=== PATIENT | female | born 1950 | race Caucasian/White ===

== ENCOUNTER 2019-05-05 17:40 | Inpatient (IN) ==
[2019-05-05] MEDS ORDERED: ONDANSETRON INJ 2 MG/ML 2 ML VIAL IV STA (18:09)
[2019-05-05] MEDS ORDERED: KETOROLAC TROMETHAMINE 15 MG/ML VIAL IV ONE (18:09)
[2019-05-05] MEDS: HYDROmorphone INJ 0.5 MG/0.5 ML SYR IV PRN ×2 (18:27→22:07)
[2019-05-05 18:53] LABS: Basophils # (auto) 0.02 K/uL (0-0.2); Basophils % (auto) 0.1 %; Hematocrit (blood only) 45.6 % (37-47); Hemoglobin 16.2 g/dL (12.0-16.0); Immature Granulocytes # (auto) 0.05 K/uL (0.00-0.02); Immature Granulocytes % (auto) 0.2 %; Lymphocytes # (auto) 0.37 K/uL (1.2-3.4); Lymphocytes % (auto) 1.8 %; Mean Corpuscular Hgb Conc 35.5 g/dL (32-36); Mean Corpuscular Volume 89.9 fL (80-100); Mean Platelet Volume 9.9 fL (7.4-10.4); Monocytes # (auto) 1.32 K/uL (0.11-0.59); Monocytes % (auto) 6.5 %; Neutrophils # (auto) 18.62 K/uL (1.4-6.5); Neutrophils % (auto) 91.4 %; Platelet Count 265 K/uL (130-400); RDW Coefficient of Variation 12.7 % (11.5-14.5); RDW Standard Deviation 41.1 fL (36.4-46.3); Red Blood Count 5.07 M/uL (4.2-5.4); White Blood Count 20.38 K/uL (4.8-10.8)
--- NOTE | 2019-05-05 19:25 | CT Scan Report ---
ABDOMEN AND PELVIS CT WITHOUT CONTRAST CT DOSE: 1175.94 mGy.cm HISTORY: Acute left flank pain left flank pain TECHNIQUE: Multiaxial CT images of the abdomen and pelvis were performed without contrast. A dose lo wering technique was utilized adhering to the principles of ALARA. COMPARISON STUDY: None. FINDINGS: Mild subsegmental bibasilar atelectasis. There is no pneumatosis or pneumoperitoneum. Imaged inferior cardiac chambers are unremarkable. Hepatic steatosis. No evidence of cirrhosis. The spleen and adren al glands are unremarkable. Moderate generalized pancreatic atrophy. Large gallstone of the mid gallb ladder is noted without CT evidence of acute cholecystitis or biliary ductal dilation. Mucosal fold o f the gallbladder fundus with gallbladder distention. 2 mm nonobstructing calculus of the interpolar right kidney. There are several punctate nonobstructin g calculi of the left kidney, most pronounced within the inferior pole. 1.9 x 1.1 x 1.7 cm calculus o f the left ureteropelvic junction results in moderate hydroureteronephrosis with associated reactive perinephric and proximal periureteral edema. Unremarkable urinary bladder. Hysterectomy. Multiple phl eboliths of the pelvis. No adnexal mass lesions. Calcified plaque of the abdominal aorta. Unremarkabl e IVC. No adenopathy. Mild nonspecific wall thickening of the distal esophagus. No bowel obstruction or bowel wall thickeni ng. Appendix not definitively seen. No secondary signs of acute appendicitis. Soft tissues are unrema rkable. Degenerative changes of the spine and pelvis. IMPRESSION: 1. Moderate left-sided obstructive uropathy secondary to an obstructing calculus of the left ureterop elvic junction, 1.9 cm. 2. Nonobstructing bilateral nephrolithiasis. 3. No bowel obstruction or bowel wall thickening. 4. Mild gallbladder distention with large gallstone. No definite CT evidence of acute cholecystitis. 5. Hepatic steatosis. Electronically signed by: Samuel Cleveland M.D. 05/05/2019 7:23 PM
[2019-05-05 19:29] LABS: Alanine Aminotransferase 19 U/L (12-78); Albumin Globulin Ratio 0.9 (0.9-2); Albumin Level 3.9 gm/dl (3.4-5.0); Alkaline Phosphatase 111 U/L (45-117); Aspartate Aminotransferase 15 U/L (15-37); BUN Creatinine Ratio 13.8 (10-20); Bilirubin,Total 1.2 mg/dl (0.2-1); Blood Urea Nitrogen 19 mg/dl (7-18); Calcium 9.7 mg/dl (8.5-10.1); Carbon Dioxide 17 mmol/L (21-32); Chloride 95 mmol/L (98-107); Creatinine Clr Calc Pharmacy 46.5 ml/min; Est GFR (African American) 45.8; Est GFR (Non-African American) 39.5; Globulin 4.4 gm/dl (2.5-4.0); Glucose 493 mg/dl (70-99); Lipase 112 U/L (73-393); Potassium 4.1 mmol/L (3.5-5.1); Sodium 130 mmol/L (136-145); Total Protein 8.4 gm/dl (6.4-8.2)
[2019-05-05] MEDS ORDERED: SODIUM CHLORIDE 0.9% 1000ML 1,000 ML IV ONE ×2 (19:40→23:15)
[2019-05-05] MEDS ORDERED: SODIUM CHLORIDE 0.9% 1000ML 1,000 ML IV STA (19:40)
[2019-05-05 19:41] LABS: Appearance Urine Clear (Clear); Bacteria Urine Automated Negative (Negative); Bilirubin Urine Negative (Negative); Blood Urine 1+ (Negative); Cast Urine Automated 0 /lpf (0-5); Color Urine Yellow; Glucose Urine UA 3+ (Negative); Leukocyte Esterase Urine Negative (Negative); Nitrite Urine Negative (Negative); Protein Urine Trace (Negative); RBC Urine Automated 0-4 /hpf (0-4); Specific Gravity Urine 1.034 (1.000-1.030); Urobilinogen Urine Negative (Negative)
[2019-05-05 19:42] LABS: Beta-Hydroxybutyrate 27.97 mg/dl (0.2-2.81)
[2019-05-05 19:47] LABS: Ketones Urine 3+ (Negative)
[2019-05-05] MEDS ORDERED: MODERATE STRESS LEVEL ONE (19:47)
[2019-05-05] MEDS ORDERED: INSULIN REGULAR 250 UNITS in SODIUM CHLORIDE 0.9% 247.5 ML IV SCH ×3 (20:00→22:27)
[2019-05-05] MEDS ORDERED: DKA GOAL RANGE 150-250 mg/dl ONE (20:06)
[2019-05-05] MEDS ORDERED: GLUCOSE 40% GEL 15 GM TUBE PO PRN (20:15)
[2019-05-05] MEDS ORDERED: GLUCOSE 10 TABS/TUBE PO PRN (20:15)
[2019-05-05] MEDS ORDERED: GLUCAGON FOR INJ 1 MG VIAL IM PRN (20:15)
[2019-05-05] MEDS ORDERED: NovoLIN-R BOLUS FROM BAG IV ONE (20:15)
[2019-05-05] MEDS ORDERED: DEXTROSE 50% 50 ML SYRINGE IV PRN (20:15)
[2019-05-05] MEDS ORDERED: CARBOHYDRATES FOR HYPOGLYCEMIA PO PRN (20:15)
[2019-05-05] MEDS ORDERED: cloNIDine HCL 0.1 MG TAB PO ONE (20:35)
[2019-05-05] MEDS ORDERED: HYDROmorphone INJ 0.5 MG/0.5 ML SYR IV PRN (20:44)
[2019-05-05] MEDS ORDERED: PROMETHAZINE HCL 12.5 MG in SODIUM CHLORIDE 0.9% 50 ML IV PRN (20:44)
[2019-05-05] MEDS ORDERED: OXYCODONE HCL IR 5 MG TAB (IMMEDIATE RELEASE) PO PRN (20:44)
[2019-05-05] MEDS ORDERED: SODIUM CHLORIDE 0.9% 1000ML 1,000 ML IV SCH (20:45)
[2019-05-05] MEDS ORDERED: INSULIN ASPART 100 UNITS/ML 3 ML PEN SC SCH (21:00)
--- NOTE | 2019-05-05 21:04 | XRay Report ---
XR chest 1V portable HISTORY: 68 years-old Female sepsis acute sepsis COMPARISON: CT abdomen and pelvis of same day TECHNIQUE: Portable AP view of the chest FINDINGS: Cardiac silhouette is enlarged. Minimal bibasilar atelectasis. No pneumothorax, pleural effusion, foc al airspace consolidation or overt pulmonary edema. Degenerative changes of the shoulders and spine. IMPRESSION: Cardiomegaly without acute process. The above report was generated using voice recognition software. It may contain grammatical, syntax o r spelling errors. Electronically signed by: Samuel Cleveland M.D. 05/05/2019 9:03 PM
[2019-05-05 21:10] LABS: Magnesium 1.6 mg/dl (1.8-2.4); Troponin I < 0.015 ng/ml (0-0.045)
--- NOTE | 2019-05-05 21:16 | History & Physical Report ---
Date of Service May 05, 2019 Assessment & Plan (1) DKA (diabetic ketoacidoses): Hx DM 2 (patient denies knowledge of diagnosis) Outpatient hemoglobin A1c 7.5 as of September 2012 hx medication noncompliance Severe sepsis (SIRS plus lactic acid elevation plus ARF) secondary to complicated UTI secondary to obstructive uropathy as additional precipitant to hyperglycemic crisis, procalcitonin noted to be elevated Hypertensive urgency secondary to illness, discomfort hx medication noncompliance hyperlipidemia as per records, patient previously on statin rx uterine cancer status post surgery PCU IVF, IV insulin Update hemoglobin A1c DM education Cultures, IV Zosyn for now Urology consult RE obstructive uropathy, left (ER provider already in touch with Dr. Veolz) Initiate Coreg for BP control, resume prior GABBY inhibitor once creatinine normal Resume prior statin Rx DVT prophylaxis. Lovenox subcu Full code Patient's daughter requesting updates from providers. Ms. Margarita Valdovinos, contact #[phone]. History of Present Illness Chief Complaint: Left flank pain Primary Care Provider: NO PCP History obtained from patient, family, and records. Medical history significant for hypertension, hx DM2 as per records (patient denies knowledge of diagnosis), hyperlipidemia as per records, uterine cancer status post surgery, osteoarthritis. Patient to [place] from [place] about 5 years ago to be close to her daughter. Never set up PCP services in [facility]. Doing [place], [place] residence, patient's [facility] PCP had patient on metformin Rx for DM; Atenolol and Lisinopril Rx for HTN as per records. Patient stopped taking above medications because " there was no one to prescribe them in [facility] for me." This morning patient woke up with achy left-sided flank pain going to the front with nausea and emesis. No chest pain. S OB from not being able to take a deep breath because of left flank pain. No cough symptoms. No dysuria, no hematuria, no fever. Some chills noted at home. At the ER, IV insulin started for DKA. Medical History as above Surgical History : Hysterectomy, dental surgery, D&C Family History : Lymphoma, thyroid cancer, diabetes, prostate cancer Personal/Social history : Non-smoker, no EtOH intake, retired [employer] employee Allergies Allergy/AdvReac Type Severity Reaction Status Date / Time acetaminophen [From Tylenol] Allergy Severe Hives, Verified 05/05/19 20:38 swollen eyes and fingers turn black aspirin Allergy Severe Hives, Verified 05/05/19 20:38 swollen eyes and fingers turn black Home Medications Home Medications Medication Instructions Recorded Confirmed Type No Known Home Medications 05/05/19 05/05/19 History Past Med/Surg History Medical History Hypertension (Chronic) Uterine cancer (Resolved) Surgical History No significant past surgical history Family History Other No pertinent family history Social History Preferred Language: Kiswahili Communication Ability: Effective Dianetic Counselor Required: No Beliefs That Will Affect Care: None Current Living Situation: Alone Other Information That Helps Us Care for You: No Feels Safe at Home: Yes Safety Concerns: Feels Safe At This Time Smoking Status: Never smoker Hx Alcohol Use: Yes Alcohol type: wine Hx Substance Use: No Review of Systems Review of Systems: As per HPI, all 10 systems reviewed, all other ROS negative Physical Exam Physical Exam: GENERAL: Comfortable, cheerful, obese, no respiratory distress SKIN: Normal color, warm HEENT: [place] palpebral conjunctivae, no ptosis, dry buccal mucosa NECK : Supple, short neck, no tenderness CHEST : CTA, no tenderness HEART : Tachycardic, no obvious murmurs ABDOMEN: Some distention, left flank tenderness EXTREMITIES : Chronic LE swelling, no LE tenderness, no other conspicuous deformities noted NEUROLOGIC : Coherent, no facial asymmetry, no other gross focality Results & Data Vital Signs (Past 12 Hours) Vital Signs Temp Pulse Pulse Resp BP BP Pulse Ox 05/05/19 19:56 105 H 19 188/110 H 97 05/05/19 18:37 103 H 16 184/107 H 96 05/05/19 17:59 36.8 C 112 H 20 199/104 H 98 Laboratory Results Laboratory Results WBC 20.38 K/uL (4.8-10.8) H 05/05/19 18:25 RBC 5.07 M/uL (4.2-5.4) 05/05/19 18:25 Hgb 16.2 g/dL (12.0-16.0) H 05/05/19 18:25 Hct 45.6 % (37-47) 05/05/19 18: MCV 89.9 fL (80-100) 05/05/19 18:25 MCH 32.0 pg (25-34) 05/05/19 18: MCHC 35.5 g/dL (32-36) 05/05/19 18: RDW Std Deviation 41.1 fL (36.4-46.3) 05/05/19 18: RDW Coeff of Marisa 12.7 % (11.5-14.5) 05/05/19 18: Plt Count 265 K/uL (130-400) 05/05/19 18: MPV 9.9 fL (7.4-10.4) 05/05/19 18:25 Immature Gran % (Auto) 0.2 % 05/05/19 18: Neut % (Auto) 91.4 % 05/05/19 18:25 Lymph % (Auto) 1.8 % 05/05/19 18:25 [place] % (Auto) 6.5 % 05/05/19 18:25 Eos % (Auto) 0.0 % 05/05/19 18: Baso % (Auto) 0.1 % 05/05/19 18: Immature Gran # (Auto) 0.05 K/uL (0.00-0.02) H 05/05/19 18:25 Neut # (Auto) 18.62 K/uL (1.4-6.5) H 05/05/19 18:25 Lymph # (Auto) 0.37 K/uL (1.2-3.4) L 05/05/19 18:25 [place] # (Auto) 1.32 K/uL (0.11-0.59) H 05/05/19 18:25 Eos # (Auto) 0.00 K/uL (0-0.5) 05/05/19 18:25 Baso # (Auto) 0.02 K/uL (0-0.2) 05/05/19 18:25 Sodium 130 mmol/L (136-145) L 05/05/19 18:25 Potassium 4.1 mmol/L (3.5-5.1) 05/05/19 18:25 Chloride 95 mmol/L (98-107) L 05/05/19 18:25 Carbon Dioxide 17 mmol/L (21-32) L 05/05/19 18:25 Anion Gap 18.0 (3-11) H 05/05/19 18:25 BUN 19 mg/dl (7-18) H 05/05/19 18:25 Creatinine 1.37 mg/dl (0.6-1.2) H 05/05/19 18:25 Est Cr Clr Drug Dosing 46.5 ml/min 05/05/19 18:25 Est GFR ( Amer) 45.8 05/05/19 18:25 Est GFR (Non-Af Amer) 39.5 05/05/19 18:25 BUN/Creatinine Ratio 13.8 (10-20) 05/05/19 18:25 Glucose 493 mg/dl (70-99) H* 05/05/19 18:25 POC Glucose 478 (70-99) H* 05/05/19 20:55 Calcium 9.7 mg/dl (8.5-10.1) 05/05/19 18:25 Magnesium 1.6 mg/dl (1.8-2.4) L 05/05/19 18:25 Total Bilirubin 1.2 mg/dl (0.2-1) H 05/05/19 18:25 AST 15 U/L (15-37) 05/05/19 18:25 ALT 19 U/L (12-78) 05/05/19 18:25 Alkaline Phosphatase 111 U/L (45-117) 05/05/19 18:25 Troponin I < 0.015 ng/ml (0-0.045) 05/05/19 18:25 Total Protein 8.4 gm/dl (6.4-8.2) H 05/05/19 18:25 Albumin 3.9 gm/dl (3.4-5.0) 05/05/19 18:25 Globulin 4.4 gm/dl (2.5-4.0) H 05/05/19 18:25 Albumin/Globulin Ratio 0.9 (0.9-2) 05/05/19 18:25 Lipase 112 U/L (73-393) 05/05/19 18:25 Beta-Hydroxybutyric Acd 27.97 mg/dl (0.2-2.81) H 05/05/19 18:25 TSH 1.710 uIu/ml (0.300-4.500) 05/05/19 18:25 Urine Color Yellow 05/05/19 19: Urine Appearance Clear (Clear) 05/05/19: Urine pH 5.0 (4.5-7.5) 05/05/19: Ur Specific [place] 1.034 (1.000-1.030) H 05/05/19 19: Urine Protein Trace (Negative) H 05/05/19 19:29 Urine Glucose (UA) 3+ (Negative) H 05/05/19: Urine Ketones 3+ (Negative) H 05/05/19: Urine Blood 1+ (Negative) H 05/05/19: Urine Nitrite Negative (Negative) 05/05/19: Urine Bilirubin Negative (Negative) 05/05/19: Urine Urobilinogen Negative (Negative) 05/05/19 19: Ur Leukocyte Esterase Negative (Negative) 05/05/19 19:29 Urine WBC (Auto) 10-30 /hpf (0-5) H 05/05/19 19: Urine RBC (Auto) 0-4 /hpf (0-4) 05/05/19: U Hyaline Cast (Auto) 0 /lpf (0-5) 05/05/19 19: U Epithel Cells (Auto) 10-20 /lpf (0-5) H 05/05/19 19:29 Urine Bacteria (Auto) Negative (Negative) 05/05/19 19:[address] abdomen pelvis: 1. Moderate left-sided obstructive uropathy secondary to an obstructing calculus of the left ureteropelvic junction, 1.9 cm. 2. Nonobstructing bilateral nephrolithiasis. 3. No bowel obstruction or bowel wall thickening. 4. Mild gallbladder distention with large gallstone. No definite CT evidence of acute cholecystitis. 5. Hepatic steatosis. Chest x-ray : Cardiomegaly EKG as per my interpretation : Rate 115, sinus tachycardia, LAD, LAFB, LAE, LVH, no ischemia (1) DKA (diabetic ketoacidoses) Diabetes mellitus complication detail: without coma Diabetes mellitus type: other specified (including KAVON) Qualified Code(s): E13.10 - Other specified diabetes mellitus with ketoacidosis without coma
[2019-05-05] MEDS ORDERED: carvediloL 3.125 MG TAB ONE (21:27)
[2019-05-05] MEDS ORDERED: INSULIN PROTOCOL GOAL RANGE ONE (22:27)
[2019-05-05] MEDS ORDERED: LORazepam 0.25 MG/0.5 ML VIAL IV PRN (22:27)
[2019-05-05] MEDS ORDERED: NITROGLYCERIN SL 0.4 MG/TAB TAB SL PRN (22:27)
[2019-05-05] MEDS ORDERED: D5W AND LACTATED RINGERS 1,000 ML IV PRN (22:27)
[2019-05-05] MEDS: carvediloL 3.125 MG TAB PO SCH (22:42)
[2019-05-05 23:59] LABS: BUN Creatinine Ratio 11.9 (10-20); Calcium 8.5 mg/dl (8.5-10.1); Creatinine Clr Calc Pharmacy 46.7 ml/min; Est GFR (African American) 45.4; Est GFR (Non-African American) 39.2; Potassium 3.9 mmol/L (3.5-5.1)
[2019-05-05] MEDS ORDERED: CEFEPIME 2,000 MG/20 ML VIAL IV STA (23:59)
[2019-05-05] MEDS ORDERED: CEFEPIME CONSULT ACTIVE ONE (23:59)
[2019-05-06] MEDS ORDERED: LACTATED RINGER'S 1,000 ML IV ONE (00:11)
[2019-05-06] MEDS ORDERED: PIPERACILL/TAZOBAC CONSULT ACTIVE PRN (00:11)
[2019-05-06] MEDS ORDERED: PIPERACILLIN/TAZOBACTAM 4.5 GM in DEXTROSE 5% 100 ML IV STA (00:42)
[2019-05-06] MEDS ORDERED: LACTATED RINGER'S 1,000 ML IV SCH ×3 (01:15→03:15)
[2019-05-06] MEDS: HEPARIN SOD 5,000 UNIT/0.5 ML VIAL SQ SCH ×2 (01:29→06:16)
[2019-05-06] MEDS ORDERED: SODIUM CHLORIDE 0.9% 1000ML 1,000 ML IV SCH (01:30)
[2019-05-06] MEDS ORDERED: MAGNESIUM SULFATE / D5W 1 GM/100 ML BAG IV ONE (01:30)
--- NOTE | 2019-05-06 01:37 | Emergency Department Note ---
Entered by Elin Akhtar acting as a scribe for Ronnie Betancourt MD ED Provider Note CHIEF COMPLAINT: Left Sided Flank Pain HISTORY OF PRESENT ILLNESS: The patient is a 68 year old female who presents to the Emergency Room with complaints of left sided flank pain beginning this morning. She reports her pain is on her left side and radiated to her front. She rates her pain as a 7/10 in severity and notes it has worsened throughout the day. She states she has tried taking a hot shower, lying on both of her sides, and resting but nothing has modified her pain. She took 1 ibuprofen at 1640 today with no relief. Pt has SOB due to her pain, nausea, and vomiting but denies headache, fevers, chills, diaphoresis, visual changes, neck pain, chest pain, melena, hematochezia, urinary symptoms, numbness, weakness, lymphadenopathy, rash, or other complaints. REVIEW OF SYSTEMS: See HPI for pertinent positives and negatives. A total of ten systems were reviewed and were otherwise negative. PMHx/PSHx: Uterine Cancer Hypertension SOCIAL HISTORY: Patient lives at home. PHYSICAL EXAM: GENERAL: Awake, alert, well-appearing, in no distress HENT: Normocephalic, atraumatic. Oropharynx unremarkable. EYES: PERRL. Normal conjunctiva. Sclera non-icteric. NECK: Inspection normal. Non-tender. Supple. No nuchal rigidity. FROM. No masses. RESPIRATORY: Clear to auscultation. No wheezes. No rales. Normal respiratory effort. CARDIAC: Borderline tachycardic rate. Normal rhythm. No murmurs. No rubs. Extremities warm and well perfused. Pulses equal. No JVD. GI: Soft, non-distended. No tenderness to palpation. No rebound or guarding. No masses. RECTAL: Deferred. MUSCULOSKELETAL: Atraumatic. Chest examination reveals no tenderness. The back is symmetrical on inspection without obvious abnormality. No joint edema. LOWER EXTREMITIES: Calves are equal size bilaterally and non-tender. No edema. No discoloration. NEURO: Normal sensorium. No sensory or motor deficits noted. SKIN: No rash or jaundice noted. EMERGENCY DEPARTMENT COURSE: 1809: The patient was evaluated in room C12, and a complete history and physical examination were performed. 1805: Discussed the patient's case with Dr. Veloz, [facility] Urology. He recommends the patient be evaluated for further admission. He states to notify him of any fevers or other medical conditions that arise. He states they will see the patient tomorrow. 2017: [facility]. The patient will be evaluated for further management. MEDICAL DECISION MAKING: C12 Triage Nursing notes reviewed and agree them. Additional history obtained from the family. The patient's history was concerning for flank and abdominal pain. Differential diagnosis: Etiologies such as renal colic, appendicitis, diverticulitis, mesenteric ischemia, aortic pathology, infections, inflammatory bowel disease, PUD, biliary pathology, UTI, as well as others were entertained. Physical examination findings: As above. ER treatment provided: IV Dilaudid IV Zofran IV Toradol On reassessment the patient felt better. IV normal saline IV insulin drip Diagnostic interpretation by me: The labs revealed a significant leukocytosis on CBC. Chemistry panel was concerning for severe hyperglycemia and acidosis. Elevated BHB. Consistent with DKA.. Urinalysis revealed hematuria. There was no sign of UTI. Imaging studies: CT scan of the abdomen pelvis was performed and shows a significant left-sided kidney stone with hydronephrosis. Incidentally patient also has a gallstone. Consultation: Consultation was placed with urology, Dr. Miguelangel Veloz. The case was discussed. He recommended medical admission and pain control. He would like to be notified if the patient has any signs of sepsis, fever or infection. The patient will be seen tomorrow in consultation. A consultation was placed with the hospitalist. The case was discussed and diagnostics were reviewed. The patient was evaluated in the ER for further treatment. IMPRESSION: Left flank pain Ureterolithiasis Hydronephrosis Leukocytosis DKA Hypertension PLAN: Being evaluated by hospitalist The scribe's documentation has been prepared under my direction and personally reviewed by me in its entirety. I confirm that the note above accurately refle cts all work, treatment, procedures, and medical decision making performed by me. I have personally spent 38 minutes of critical care time in the direct management of this patient. This includes bedside care, interpretation of diagnostic studies, and testing, discussion with consultants, patient, and family members, and other required patient management activities. This 38 minutes is in excess of all separately billable procedures. Impression & Plan Left flank pain, Hypertension, Ureterolithiasis, Hydronephrosis, Leukocytosis, DKA (diabetic ketoacidoses) Past Med/Surg History Medical History Hypertension (Chronic) Uterine cancer (Resolved) Surgical History No significant past surgical history Family History Other No pertinent family history Social History Preferred Language: [place] Communication Ability: Effective Clinical Informatics Specialist Required: No Beliefs That Will Affect Care: None Current Living Situation: Alone Other Information That Helps Us Care for You: No Feels Safe at Home: Yes Safety Concerns: Feels Safe At This Time Smoking Status: Never smoker Hx Alcohol Use: Yes Alcohol type: wine Hx Substance Use: No Results & Data Vital Signs Vital Signs - 24 hr 05/05/19 17:59 05/05/19 18:37 05/05/19 19:56 Temperature 36.8 C Temperature Source Oral Sepsis Recent Fever Within 48 Hours No Sepsis New/Unexplained Change in Mental Status No Sepsis Action Taken by Nursing No Action Required Pulse Rate 112 H Pulse Rate [Apical] 103 H 105 H Pulse Rate from SpO2 Sensor Pulse Rhythm [Apical] Regular Pulse Strength [Apical] Normal Respiratory Rate 20 16 19 Respiratory Effort / Characteristics Non-Labored Spontaneous Respiratory Depth Normal Respiratory Pattern Regular Blood Pressure 199/104 H Blood Pressure [Left Arm] 184/107 H 188/110 H Blood Pressure Mean 135 Blood Pressure Mean [Left Arm] 132 136 Blood Pressure Position Sitting Pulse Oximetry 98 96 97 Oxygen Delivery Method Room Air Room Air Room Air 05/05/19 20:00 05/05/19 20:30 05/05/19 21:00 Temperature Temperature Source Sepsis Recent Fever Within 48 Hours Sepsis New/Unexplained Change in Mental Status Sepsis Action Taken by Nursing Pulse Rate 110 H 112 H Pulse Rate [Apical] Pulse Rate from SpO2 Sensor 112 H 113 H 117 H Pulse Rhythm [Apical] Pulse Strength [Apical] Respiratory Rate 28 H 22 Respiratory Effort / Characteristics Respiratory Depth Respiratory Pattern Blood Pressure 183/127 H 190/112 H 191/96 H Blood Pressure [Left Arm] Blood Pressure Mean 145 138 127 Blood Pressure Mean [Left Arm] Blood Pressure Position Pulse Oximetry 97 96 97 Oxygen Delivery Method Room Air Room Air Room Air Home Medications Current Medication List: was personally reviewed by Laboratory Data Attestation: I reviewed the patient's lab results. Result diagrams: 05/05/19 18:25 05/05/19 23:29 Lab Results 05/05/19 05/05/19 05/05/19 Range/Units 18:25 18:25 18:26 WBC 20.38 H (4.8-10.8) K/uL RBC 5.07 (4.2-5.4) M/uL Hgb 16.2 H (12.0-16.0) g/dL Hct 45.6 (37-47) % MCV 89.9 (80-100) fL MCH 32.0 (25-34) pg MCHC 35.5 (32-36) g/dL RDW Std Deviation 41.1 (36.4-46.3) fL RDW Coeff of Marisa 12.7 (11.5-14.5) % Plt Count 265 (130-400) K/uL MPV 9.9 (7.4-10.4) fL Immature Gran % (Auto) 0.2 % Neut % (Auto) 91.4 % Lymph % (Auto) 1.8 % Sunflower % (Auto) 6.5 % Eos % (Auto) 0.0 % Baso % (Auto) 0.1 % Immature Gran # (Auto) 0.05 H (0.00-0.02) K/uL Neut # (Auto) 18.62 H (1.4-6.5) K/uL Lymph # (Auto) 0.37 L (1.2-3.4) K/uL Sunflower # (Auto) 1.32 H (0.11-0.59) K/uL Eos # (Auto) 0.00 (0-0.5) K/uL Baso # (Auto) 0.02 (0-0.2) K/uL Sodium 130 L (136-145) mmol/L Potassium 4.1 (3.5-5.1) mmol/L Chloride 95 L (98-107) mmol/L Carbon Dioxide 17 L (21-32) mmol/L Anion Gap 18.0 H (3-11) BUN 19 H (7-18) mg/dl Creatinine 1.37 H (0.6-1.2) mg/dl Est Cr Clr Drug Dosing 46.5 ml/min Est GFR ( Amer) 45.8 Est GFR (Non-Af Amer) 39.5 BUN/Creatinine Ratio 13.8 (10-20) Glucose 493 H* (70-99) mg/dl POC Glucose (70-99) Osmolality 309 H (280-300) mOsm/kg Calcium 9.7 (8.5-10.1) mg/dl Magnesium 1.6 L (1.8-2.4) mg/dl Total Bilirubin 1.2 H (0.2-1) mg/dl AST 15 (15-37) U/L ALT 19 (12-78) U/L Alkaline Phosphatase 111 (45-117) U/L Troponin I < 0.015 (0-0.045) ng/ml Total Protein 8.4 H (6.4-8.2) gm/dl Albumin 3.9 (3.4-5.0) gm/dl Globulin 4.4 H (2.5-4.0) gm/dl Albumin/Globulin Ratio 0.9 (0.9-2) Lipase 112 (73-393) U/L Beta-Hydroxybutyric Acd 27.97 H (0.2-2.81) mg/dl Procalcitonin (0-0.5) ng/ml TSH 1.710 (0.300-4.500) uIu/ml Urine Color Urine Appearance (Clear) Urine pH (4.5-7.5) Ur Specific [place] (1.000-1.030) Urine Protein (Negative) Urine Glucose (UA) (Negative) Urine Ketones (Negative) Urine Blood (Negative) Urine Nitrite (Negative) Urine Bilirubin (Negative) Urine Urobilinogen (Negative) Ur Leukocyte Esterase (Negative) Urine WBC (Auto) (0-5) /hpf Urine RBC (Auto) (0-4) /hpf U Hyaline Cast (Auto) (0-5) /lpf U Epithel Cells (Auto) (0-5) /lpf Urine Bacteria (Auto) (Negative) 05/05/19 05/05/19 05/05/19 Range/Units 18:26 19:29 20:50 WBC (4.8-10.8) K/uL RBC (4.2-5.4) M/uL Hgb (12.0-16.0) g/dL Hct (37-47) % MCV (80-100) fL MCH (25-34) pg MCHC (32-36) g/dL RDW Std Deviation (36.4-46.3) fL RDW Coeff of Marisa (11.5-14.5) % Plt Count (130-400) K/uL MPV (7.4-10.4) fL Immature Gran % (Auto) % Neut % (Auto) % Lymph % (Auto) % Sunflower % (Auto) % Eos % (Auto) % Baso % (Auto) % Immature Gran # (Auto) (0.00-0.02) K/uL Neut # (Auto) (1.4-6.5) K/uL Lymph # (Auto) (1.2-3.4) K/uL Sunflower # (Auto) (0.11-0.59) K/uL Eos # (Auto) (0-0.5) K/uL Baso # (Auto) (0-0.2) K/uL Sodium (136-145) mmol/L Potassium (3.5-5.1) mmol/L Chloride (98-107) mmol/L Carbon Dioxide (21-32) mmol/L Anion Gap (3-11) BUN (7-18) mg/dl Creatinine (0.6-1.2) mg/dl Est Cr Clr Drug Dosing ml/min Est GFR ( Amer) Est GFR (Non-Af Amer) BUN/Creatinine Ratio (10-20) Glucose (70-99) mg/dl POC Glucose 438 H* (70-99) Osmolality (280-300) mOsm/kg Calcium (8.5-10.1) mg/dl Magnesium (1.8-2.4) mg/dl Total Bilirubin (0.2-1) mg/dl AST (15-37) U/L ALT (12-78) U/L Alkaline Phosphatase (45-117) U/L Troponin I (0-0.045) ng/ml Total Protein (6.4-8.2) gm/dl Albumin (3.4-5.0) gm/dl Globulin (2.5-4.0) gm/dl Albumin/Globulin Ratio (0.9-2) Lipase (73-393) U/L Beta-Hydroxybutyric Acd (0.2-2.81) mg/dl Procalcitonin 0.63 H (0-0.5) ng/ml TSH (0.300-4.500) uIu/ml Urine Color Yellow Urine Appearance Clear (Clear) Urine pH 5.0 (4.5-7.5) Ur Specific [place] 1.034 H (1.000-1.030) Urine Protein Trace H (Negative) Urine Glucose (UA) 3+ H (Negative) Urine Ketones 3+ H (Negative) Urine Blood 1+ H (Negative) Urine Nitrite Negative (Negative) Urine Bilirubin Negative (Negative) Urine Urobilinogen Negative (Negative) Ur Leukocyte Esterase Negative (Negative) Urine WBC (Auto) 10-30 H (0-5) /hpf Urine RBC (Auto) 0-4 (0-4) /hpf U Hyaline Cast (Auto) 0 (0-5) /lpf U Epithel Cells (Auto) 10-20 H (0-5) /lpf Urine Bacteria (Auto) Negative (Negative) 05/05/19 Range/Units 20:55 WBC (4.8-10.8) K/uL RBC (4.2-5.4) M/uL Hgb (12.0-16.0) g/dL Hct (37-47) % MCV (80-100) fL MCH (25-34) pg MCHC (32-36) g/dL RDW Std Deviation (36.4-46.3) fL RDW Coeff of Marisa (11.5-14.5) % Plt Count (130-400) K/uL MPV (7.4-10.4) fL Immature Gran % (Auto) % Neut % (Auto) % Lymph % (Auto) % Sunflower % (Auto) % Eos % (Auto) % Baso % (Auto) % Immature Gran # (Auto) (0.00-0.02) K/uL Neut # (Auto) (1.4-6.5) K/uL Lymph # (Auto) (1.2-3.4) K/uL Sunflower # (Auto) (0.11-0.59) K/uL Eos # (Auto) (0-0.5) K/uL Baso # (Auto) (0-0.2) K/uL Sodium (136-145) mmol/L Potassium (3.5-5.1) mmol/L Chloride (98-107) mmol/L Carbon Dioxide (21-32) mmol/L Anion Gap (3-11) BUN (7-18) mg/dl Creatinine (0.6-1.2) mg/dl Est Cr Clr Drug Dosing ml/min Est GFR ( Amer) Est GFR (Non-Af Amer) BUN/Creatinine Ratio (10-20) Glucose (70-99) mg/dl POC Glucose 478 H* (70-99) Osmolality (280-300) mOsm/kg Calcium (8.5-10.1) mg/dl Magnesium (1.8-2.4) mg/dl Total Bilirubin (0.2-1) mg/dl AST (15-37) U/L ALT (12-78) U/L Alkaline Phosphatase (45-117) U/L Troponin I (0-0.045) ng/ml Total Protein (6.4-8.2) gm/dl Albumin (3.4-5.0) gm/dl Globulin (2.5-4.0) gm/dl Albumin/Globulin Ratio (0.9-2) Lipase (73-393) U/L Beta-Hydroxybutyric Acd (0.2-2.81) mg/dl Procalcitonin (0-0.5) ng/ml TSH (0.300-4.500) uIu/ml Urine Color Urine Appearance (Clear) Urine pH (4.5-7.5) Ur Specific [place] (1.000-1.030) Urine Protein (Negative) Urine Glucose (UA) (Negative) Urine Ketones (Negative) Urine Blood (Negative) Urine Nitrite (Negative) Urine Bilirubin (Negative) Urine Urobilinogen (Negative) Ur Leukocyte Esterase (Negative) Urine WBC (Auto) (0-5) /hpf Urine RBC (Auto) (0-4) /hpf U Hyaline Cast (Auto) (0-5) /lpf U Epithel Cells (Auto) (0-5) /lpf Urine Bacteria (Auto) (Negative) Administered Medications Carvedilol (Coreg) 3.125 mg PO BID [facility] Stop: 06/04/19 21:14 Last Admin: 05/05/19 22:42 Dose: Not Given Documented by: [id number] Heparin Sodium (Porcine) (Heparin Sodium (Porcine)) 5,000 units SQ Q8 [facility] Stop: 06/04/19 22:26 Last Admin: 05/06/19 01:29 Dose: 5,000 units Documented by: [id number] Cosigned by: [id number] Insulin Human Regular 250 (units/ Sodium Chloride) 250 mls @ 3.7 mls/hr IV .Q24H LYN; Protocol Stop: 06/04/19 20:14 Last Titration: 05/06/19 01:06 Dose: 3.7 units/hr, 3.7 mls/hr Documented by: [id number] Cosigned by: [id number] Titration: 05/06/19 00:07 Dose: 3.7 units/hr, 3.7 mls/hr Documented by: [id number] Cosigned by: [id number] Titration: 05/05/19 23:05 Dose: 3.7 units/hr, 3.7 mls/hr Documented by: [id number] Cosigned by: [id number] Titration: 05/05/19 22:03 Dose: 3.1 units/hr, 3.1 mls/hr Documented by: [id number] Cosigned by: [id number] Admin: 05/05/19 21:02 Dose: 2.6 units/hr, 2.6 mls/hr Documented by: [id number] Cosigned by: [id number] Lactated Ringer's (Lr) 1,000 mls @ 500 mls/hr IV .Q2H ONE Stop: 05/06/19 02:10 Last Admin: 05/06/19 00:54 Dose: 500 mls/hr Documented by: [id number] Discontinued Medications Carvedilol (Coreg) Confirm Administered Dose 3.125 mg .ROUTE .STK-MED ONE Stop: 05/05/19 21:28 Last Admin: 05/05/19 21:28 Dose: 3.125 mg Documented by: [id number] Clonidine HCl (Catapres) 0.1 mg PO NOW ONE Stop: 05/05/19 20:36 Last Admin: 05/05/19 22:44 Dose: Not Given Documented by: [id number] Hydromorphone HCl (Dilaudid) 0.5 mg IV Q15M PRN PRN Reason: Pain Stop: 05/19/19 18:08 Last Admin: 05/05/19 22:07 Dose: 0.5 mg Documented by: [id number] Admin: 05/05/19 18:27 Dose: 0.5 mg Documented by: [id number] Sodium Chloride (Nss 1000ml) 1,000 mls @ 125 mls/hr IV .Q8H STA Stop: 05/06/19 03:39 Last Admin: 05/05/19 22:44 Dose: Not Given Documented by: [id number] Sodium Chloride (Nss 1000ml) 1,000 mls @ 999 mls/hr IV .Q1H1M ONE Stop: 05/05/19 20:40 Last Infusion: 05/05/19 20:46 Dose: 0 mls/hr Documented by: [id number] Admin: 05/05/19 19:45 Dose: 999 mls/hr Documented by: [id number] Sodium Chloride (Nss 1000ml) 1,000 mls @ 200 mls/hr IV .Q5H LYN Last Infusion: 05/05/19 23:23 Dose: 0 mls/hr Documented by: [id number] Admin: 05/05/19 21:36 Dose: 200 mls/hr Documented by: [id number] Sodium Chloride (Nss 1000ml) 1,000 mls @ 500 mls/hr IV .Q2H ONE Stop: 05/06/19 01:14 Last Infusion: 05/06/19 00:54 Dose: 0 mls/hr Documented by: [id number] Admin: 05/05/19 23:15 Dose: 500 mls/hr Documented by: [id number] Cefepime HCl (Maxipime) 2,000 mg in 20 mls @ 5 mls/min IV NOW STA; Protocol Stop: 05/06/19 00:02 Last Admin: 05/06/19 00:20 Dose: Not Given Documented by: [id number] Piperacillin Sod/Tazobactam (Sod 4.5 gm/ Dextrose) 120 mls @ 240 mls/hr IV NOW STA Stop: 05/06/19 01:11 Last Admin: 05/06/19 01:29 Dose: 240 mls/hr Documented by: [id number] Insulin Aspart (Novolog Flexpen) 0 units SC ACHS LYN Stop: 06/04/19 20:59 Last Admin: 05/05/19 22:43 Dose: Not Given Documented by: [id number] Cosigned by: [id number] Insulin Human Regular (Novolin R Bolus From Bag) 10 units IV NOW ONE Stop: 05/05/19 20:16 Last Admin: 05/05/19 21:02 Dose: 10 units Documented by: [id number] Cosigned by: [id number] Ketorolac Tromethamine (Toradol) 10 mg IV NOW ONE Stop: 05/05/19 18:10 Last Admin: 05/05/19 18:26 Dose: 10 mg Documented by: [id number] Miscellaneous (Insulin Protocol Moderate Stress Level) 1 ea N/A ONE ONE Stop: 05/05/19 19:48 Last Admin: 05/05/19 22:44 Dose: Not Given Documented by: [id number] Miscellaneous (Insulin Protocol Dka Goal Range) 1 ea N/A ONE ONE Stop: 05/05/19 20:07 Last Admin: 05/05/19 22:44 Dose: Not Given Documented by: [id number] Miscellaneous (Insulin Protocol Goal Range) 1 ea N/A ONE ONE Stop: 05/05/19 22:28 Last Admin: 05/05/19 23:43 Dose: 1 ea Documented by: [id number] Miscellaneous Information (Cefepime Consult Active) 1 ea N/A NOW ONE Stop: 05/06/19 00:00 Last Admin: 05/06/19 00:20 Dose: Not Given Documented by: [id number] Ondansetron HCl (Zofran) 4 mg IV NOW STA Stop: 05/05/19 18:10 Last Admin: 05/05/19 18:26 Dose: 4 mg Documented by: [id number] Imaging Data Radiologist's Impression: Radiology results as stated below per my review and the radiologist's interpretation: ABDOMEN AND PELVIS CT WITHOUT CONTRAST CT DOSE: 1175.94 mGy.cm HISTORY: Acute left flank pain left flank pain TECHNIQUE: Multiaxial CT images of the abdomen and pelvis were performed without contrast. A dose lowering technique was utilized adhering to the principles of ALARA. COMPARISON STUDY: None. FINDINGS: Mild subsegmental bibasilar atelectasis. There is no pneumatosis or pneumoperitoneum. Imaged inferior cardiac chambers are unremarkable. Hepatic tawny atosis. No evidence of cirrhosis. The spleen and adrenal glands are unremarkable. Moderate generalized pancreatic atrophy. Large gallstone of the mid gallbladder is noted without CT evidence of acute cholecystitis or biliary ductal dilation. Mucosal fold of the gallbladder fundus with gallbladder di stention. 2 mm nonobstructing calculus of the interpolar right kidney. There are several punctate nonobstructing calculi of the left kidney, most pronounced within the inferior pole. 1.9 x 1.1 x 1.7 cm calculus of the left ureteropelvic junction results in moderate hydroureteronephrosis with associated reactive perinephric and proximal periureteral edema. Unremarkable urinary bladder. Hysterectomy. Multiple phleboliths of the pelvis. No adnexal mass lesions. Calcified plaque of the abdominal aorta. Unremarkable IVC. No adenopathy. Mild nonspecific wall thickening of the distal esophagus. No bowel obstruction or bowel wall thickening. Appendix not definitively seen. No secondary signs of acute appendicitis. Soft tissues are unremarkable. Degenerative changes of the spine and pelvis. IMPRESSION: 1. Moderate left-sided obstructive uropathy secondary to an obstructing calculus of the left ureteropelvic junction, 1.9 cm. 2. Nonobstructing bilateral nephrolithiasis. 3. No bowel obstruction or bowel wall thickening. 4. Mild gallbladder distention with large gallstone. No definite CT evidence of acute cholecystitis. 5. Hepatic steatosis. Electronically signed by: Saumel Cleveland M.D. 05/05/2019 7:23 PM Blood Pressure Blood Pressure Findings: Elevated blood pressure Blood Pressure Disposition: further management by hospitalist Discharge Plan Visit Data *Final* Discharge Date/Time: 05/05/19 22:18 Chief Complaint: Flank Pain Stated Complaint: INTENSE PAIN IN LEFT ABDOMIN,VOMITING ED Provider: Ronnie Betancourt Discharge Problem: Left flank pain, Hypertension, Ureterolithiasis, Hydronephrosis, Leukocytosis, DKA (diabetic ketoacidoses) Patient Disposition: Admitted As Inpatient Discharge Instructions Interventions: ED Discharge Assessment Last Done: 05/05/19 22:18 Discharge Problem: Hypertension Qualifiers: Hypertension type: unspecified Qualified Code(s): I10 - Essential (primary) hypertension Hydronephrosis Qualifiers: Hydronephrosis type: unspecified Qualified Code(s): N13.30 - Unspecified hydronephrosis Leukocytosis Qualifiers: Leukocytosis type: unspecified Qualified Code(s): D72.829 - Elevated white blood cell count, unspecified DKA (diabetic ketoacidoses) Qualifiers: Diabetes mellitus type: other specified (including KAVON) Diabetes mellitus complication detail: without coma Qualified Code(s): E13.10 - Other specified diabetes mellitus with ketoacidosis without coma The scribe's documentation has been prepared under my direction and personally reviewed by me in its entirety. I confirm that the note above accurately reflects all work, treatment, procedures, and medical decision making performed by me.
[2019-05-06 04:55] LABS: Basophils # (auto) 0.02 K/uL (0-0.2); Basophils % (auto) 0.1 %; Eosinophils # (auto) 0.01 K/uL (0-0.5); Eosinophils % (auto) 0.1 %; Hematocrit (blood only) 38.1 % (37-47); Hemoglobin 13.8 g/dL (12.0-16.0); Immature Granulocytes # (auto) 0.06 K/uL (0.00-0.02); Immature Granulocytes % (auto) 0.4 %; Lymphocytes # (auto) 0.79 K/uL (1.2-3.4); Lymphocytes % (auto) 4.7 %; Mean Corpuscular Hemoglobin 32.1 pg (25-34); Mean Corpuscular Hgb Conc 36.2 g/dL (32-36); Mean Corpuscular Volume 88.6 fL (80-100); Mean Platelet Volume 9.4 fL (7.4-10.4); Monocytes # (auto) 0.84 K/uL (0.11-0.59); Neutrophils # (auto) 15.16 K/uL (1.4-6.5); Neutrophils % (auto) 89.7 %; Platelet Count 229 K/uL (130-400); RDW Coefficient of Variation 12.7 % (11.5-14.5); RDW Standard Deviation 40.8 fL (36.4-46.3); White Blood Count 16.88 K/uL (4.8-10.8)
[2019-05-06 05:35] LABS: BUN Creatinine Ratio 15.4 (10-20); Calcium 8.5 mg/dl (8.5-10.1); Est GFR (African American) 67.9; Est GFR (Non-African American) 58.6; Potassium 3.9 mmol/L (3.5-5.1)
[2019-05-06] MEDS ORDERED: D5W AND LACTATED RINGERS 1,000 ML IV SCH (05:44)
[2019-05-06 06:13] LABS: Estimated Average Glucose 269 mg/dl
[2019-05-06] MEDS: PIPERACILLIN/TAZOBACTAM 4.5 GM in DEXTROSE 5% 100 ML IV SCH ×3 (06:41→23:06)
[2019-05-06] MEDS: INSULIN ASPART 100 UNITS/ML 3 ML PEN SC SCH ×4 (08:35→21:04)
[2019-05-06] MEDS: ENOXAPARIN INJ 40 MG/0.4 ML SYR SQ SCH (08:36)
[2019-05-06] MEDS: carvediloL 3.125 MG TAB PO SCH ×2 (08:36→19:46)
--- NOTE | 2019-05-06 08:36 | Urology Consultation ---
Date of Consultation May 06, 2019 Assessment & Plan (1) Left flank pain: (2) Ureterolithiasis: 68yo F with DKA on insulin gtt, 1.9mm left UPJ stone with moderate hydronephrosis. Pt evaluated with Dr. Veloz this AM. She is again nontoxic, afebrile and pain controlled at this time. Creatinine within normal limits, pt voiding without difficulty. UA appears inflammatory rather than infectious. Discussed options for ureteral stent today vs allowing time to optimize patient medically than consider stone treatment possibly on Thursday. She is agreeable to wait and see how she does through the weekend. Please consult our service urgently if patient develops fever >101F, intractable pain or nausea, as this will necessitate urgent surgical intervention. Thank you for the consultation and we will continue to monitor closely with primary service. History of Present Illness Reason for Consultation: stone Requesting Physician: Dr. Hdz Attending Physician: Daniela Hdz MD History of Present Illness Very pleasant 68yo F with uncontrolled DM admitted via [facility] ED last evening after one day of severe left flank pain, nausea and emesis. CT imaging reveals 1.9mm UPJ stone, with moderate hydronephrosis. She was also discovered to be in DKA, with BSG >500. This is her first stone, no previous urology evaluation. She acknowledges feeling slightly warm prior to arrival but no fevers. No LUTS, no hematuria. She moved to [place] from [place] approx 5 years ago and has not established new PCP since that time. She is currently on an insulin gtt to control BSGs. She appears comfortable, nontoxic on exam today. She states pain is currently controlled. Allergies Allergy/AdvReac Type Severity Reaction Status Date / Time acetaminophen [From Tylenol] Allergy Severe Hives, Verified 05/05/19 20:38 swollen eyes and fingers turn black aspirin Allergy Severe Hives, Verified 05/05/19 20:38 swollen eyes and fingers turn black Home Medications Home Medications Medication Instructions Recorded Confirmed Type No Known Home Medications 05/05/19 05/05/19 History Patient History Medical History Hypertension (Chronic) Uterine cancer (Resolved) Surgical History No significant past surgical history Family History Other No pertinent family history Social History Preferred Language: [place] Citizen Communication Ability: Effective Teacher Education Director Required: No Beliefs That Will Affect Care: None Current Living Situation: Alone Other Information That Helps Us Care for You: No Feels Safe at Home: Yes Safety Concerns: Feels Safe At This Time Smoking Status: Never smoker Hx Alcohol Use: Yes Alcohol type: wine Hx Substance Use: No Review of Systems Review of Systems: Constitutional: Denies fever, chills, sweats, malaise Eyes: Denies problem reported ENMT: Denies dizziness Resp: Denies cough, Denies shortness of breath CV: Denies JVD GI: Denies nausea/vomiting : + left flank pain, no suprapubic pain, dysuria, urgency, frequency, hematuria MS: Denies swelling, stiffness Integ: Denies rash, erythema Neuro: Denies falls, weakness Psych: Denies behavior change Endo: Denies polyphagia, polydipsia Heme: Denies easy bleeding Physical Exam Constitutional: no acute distress and not ill appearing Eyes: no nystagmus ENMT: Ears: no hearing impairment Neck: trachea midline Respiratory: no respiratory distress and no cough Cardiovascular: Vessels: no JVD Chest (Breasts): Chest: normal inspection of chest Gastrointestinal (Abdomen): Inspection/Auscultation: abdomen not distended and no abdominal edema Percussion/Palpation: abdomen soft; abdomen nontender Musculoskeletal: Head/Neck/Chest: normocephalic and head atraumatic Skin: no rashes, warm and dry Neurologic: awake; not confused and not obtunded Psychiatric: Orientation: alert and oriented x 3 Eye Contact: good eye contact Affect: no depressed affect Genitourinary: + CVA tenderness (left) Lymphatic: no lymphadenopathy and no lymphedema Results & Data Vital Signs (Past 12 Hours) Vital Signs Temp Pulse Pulse Pulse Resp BP BP 05/06/19 07:31 36.9 C 96 H 18 153/79 H 05/06/19 03:08 36.8 C 97 H 18 05/05/19 23:28 108 H 05/05/19 22:30 36.7 C 115 H 24 150/76 H 05/05/19 22:11 111 H 17 147/80 H 05/05/19 21:30 122 H 17 182/114 H 05/05/19 21:00 191/96 H 05/05/19 20:30 112 H 22 190/112 H BP Pulse Ox 05/06/19 07:31 94 05/06/19 03:08 127/74 95 05/05/19 23:28 05/05/19 22:30 93 05/05/19 22:11 95 05/05/19 21:30 96 05/05/19 21:00 97 05/05/19 20:30 96 PG Care Time/CCT Total # of Minutes Spent Total Time Spent with Patient: Total time spent is greater than 50% in coordination of care (as documented) at patient's floor/unit and/or counseling patient:
[2019-05-06] MEDS ORDERED: PHARMACY GLYCEMIC MGMT CONSULT PRN (09:51)
[2019-05-06] MEDS ORDERED: INSULIN GLARGINE SOLOSTAR 100 UNITS/ML 3 ML PEN SC ONE ×2 (10:00→21:00)
[2019-05-06] MEDS: LACTATED RINGER'S 1,000 ML IV SCH ×2 (11:42→21:02)
--- NOTE | 2019-05-06 13:43 | Pharmacy Report ---
Glycemic Control Consultation - Date of Service May 06, 2019 - Scope Scope: Glycemic Pharmacist consulted by Dr Hdz on 05/06 for glycemic control and to write orders per [facility] inpatient glycemic control protocol - Objective Weight: 103.9 kg Accuchecks BSG (last 24hrs): 05/05/19 05/05/19 05/05/19 18:25 20:50 20:55 Glucose 493 H* POC Glucose 438 H* 478 H* 05/05/19 05/05/19 05/05/19 21:58 22:00 23:03 Glucose POC Glucose 401 H* 350 H* 325 H* 05/05/19 05/05/19 05/06/19 23:03 23:29 00:05 Glucose 298 H POC Glucose 329 H* 296 H 05/06/19 05/06/19 05/06/19 01:04 02:08 04:35 Glucose 199 H POC Glucose 259 H 230 H 05/06/19 05/06/19 05/06/19 04:54 07:17 09:00 Glucose POC Glucose 216 H 175 H 132 H 05/06/19 05/06/19 05/06/19 10:09 11:46 13:03 Glucose POC Glucose 130 H 229 H 208 H Laboratory Data (last 24hrs): 05/05/19 05/05/19 05/05/19 18:25 18:26 23:29 Potassium 4.1 3.9 Carbon Dioxide 17 L 19 L Anion Gap 18.0 H 13.0 H Creatinine 1.37 H 1.38 H Est Cr Clr Drug Dosing 46.5 46.7 Osmolality 309 H Beta-Hydroxybutyric Acd 27.97 H 05/06/19 04:35 Potassium 3.9 Carbon Dioxide 22 Anion Gap 10.0 Creatinine 0.99 D Est Cr Clr Drug Dosing 65.0 Osmolality Beta-Hydroxybutyric Acd HbA1c: Hemoglobin A1c 11.0 % (4.5-5.6) H 05/05/19 18:25 - Recent Pertinent Medications Outpatient Anti-diabetic Regimen: * noncompliance - per MD note rx'ed metformin but not taking * A1c = 11.0 % 05/05 Risk Factors for Insulin Resistance: * Infection: zosyn * Diet: T2DM - Assessment & Plan Assessment & Plan: ASSESSMENT: * 68 year old female admitted with DKA, started on insulin drip on admission. Concern also for sepsis/secondary to UTI started on zosyn. Urology following for possible ureteral stent placement tomorrow. NPO at midnight. * PMHx significant for type 2 diabetes - history of noncompliance. Had been prescribed metformin, however not taking. * BSGs trending down more today, did give one time dose of Lantus 35 units x 1 this morning to help with transition off of the drip. (~stress of 3 dosing adj BW) * Will add scale on for Lantus for this evening in case BSGs trending up * Will write for pending order for d/c of insulin drip with specific parameters PLAN FOR INPATIENT GLYCEMIC CONTROL: * Continue insulin drip - pending order for d/c * Basal insulin * Lantus HS per scale - 0-10 units if BSG >180 mg/dL * Bolus insulin - per insulin calculator * NovoLog per scale ACHS or Q6hrs while NPO * Goal Range: Low 150 mg/dL - High 200 mg/dL * Correction Factor: -- mg/dL/unit * Nutritional / Prandial insulin per carb ratio of 1 unit per -- grams CHO consumed * Please note that the plan above was derived based on current level of insulin resistance and hospital stress. These recommendations are appropriate for inpatient admission only. Plan of care upon discharge will need to be reassessed to avoid potential outpatient hypo/hyperglycemia. Thank you.
[2019-05-06] MEDS ORDERED: PRAVASTATIN SOD 40 MG TAB PO SCH (17:00)
--- NOTE | 2019-05-06 19:30 | Hospitalist Progress Note ---
Date of Service May 06, 2019 Assessment & Plan (1) DKA (diabetic ketoacidoses): Newly diagnosed of diabetes Present on admission with elevated glucose in the 497 and anion gap 18 Hemoglobin A1c 11 on 05/06/19 Was starting on insulin drip and IVF anion gap close Insulin drip was transition to [facility] on board for glycemic management Diabetic education Continue monitor BS hx medication noncompliance Possible Severe Sepsis Leukocytosis 20k with HR 110 on admission Lactic acid and procalcitonin elevated UA cx grew more than 3 organisms (Contamination) Continue IV Zosyn WBC trending down and lactate back to normal Elevated Lactate Possible related to sepsis Elevated Lactic acid Continue IVF and IV abx Lactate normalized Left Obstructing calculus stone CT abd/pelvis showed moderate left-sided obstructive uropathy secondary to an obstructing calculus of the left ureteropelvic junction, 1.9 cm. Urology on board plan for ureteral stent possible Thursday Continue IVF If pt becomes toxic, will take to OR for emergent surgery Hypertensive Urgency Possible secondary pain BP improves On carvedilol BID DVT px on Lovenox CODE STATUS FULL CODE Disposition Patient's daughter requesting updates from providers. Ms. Margarita Valdovinos, contact #[phone]. Subjective Pt was seen and examined Lying in bed with no distress with daughter at bedside Pt said that she feels much better She said that she does not have any flank pain Denies any chest pain Physical Exam Physical Exam: General- No acute distress Head- atraumatic Eyes- PERRL, EOMI, ENT- oropharynx clear Neck- supple, no JVD Lungs- clear to auscultation Heart- regular rhythm; no murmur Abdomen- normal bowel sounds, soft, nontender Extremities- no calf tenderness Neuro- alert, oriented x 3; PERRL, EOMI; no facial palsy; no dysarthria Skin- warm & dry Results & Data Vital Signs (Past 12 Hours) Vital Signs Temp Pulse Pulse Resp BP BP Pulse Ox 05/06/19 15:46 36.6 C 19 L 91 H 132/70 96 05/06/19 11:36 37.2 C 104 H 18 134/77 95 05/06/19 07:31 36.9 C 96 H 18 153/79 H 94 (1) DKA (diabetic ketoacidoses) Diabetes mellitus complication detail: without coma Diabetes mellitus type: other specified (including KAVON) Qualified Code(s): E13.10 - Other specified diabetes mellitus with ketoacidosis without coma
--- NOTE | 2019-05-07 05:43 | Hospitalist Progress Note ---
Date of Service May 07, 2019 Subjective Made aware by RN of gram-positive cocci clusters on 1 bottle of initial blood CS results. AP GP bacteremia IV Daptomycin for now Repeat blood cultures We relay to AM provider. Results & Data Vital Signs (Past 12 Hours) Vital Signs Temp Pulse Pulse Resp BP BP Pulse Ox 05/07/19 04:55 36.9 C 84 19 172/89 H 94 05/06/19 23:46 90 05/06/19 23:06 37.5 C 94 H 18 124/72 93 05/06/19 19:55 37.2 C 95 H 18 159/94 H 95
[2019-05-07] MEDS ORDERED: DAPTOMYCIN CONSULT ACTIVE PRN (05:53)
[2019-05-07] MEDS: LACTATED RINGER'S 1,000 ML IV SCH ×2 (06:30→17:28)
[2019-05-07] MEDS: DAPTOmycin 750 MG in SYRINGE 0 ML IV SCH (06:31)
[2019-05-07] MEDS: PIPERACILLIN/TAZOBACTAM 4.5 GM in DEXTROSE 5% 100 ML IV SCH (06:31)
[2019-05-07 07:51] LABS: Hematocrit (blood only) 35.1 % (37-47); Hemoglobin 12.2 g/dL (12.0-16.0); Mean Corpuscular Hemoglobin 31.3 pg (25-34); Mean Corpuscular Hgb Conc 34.8 g/dL (32-36); Mean Platelet Volume 9.5 fL (7.4-10.4); Platelet Count 181 K/uL (130-400); RDW Standard Deviation 42.2 fL (36.4-46.3); White Blood Count 8.72 K/uL (4.8-10.8)
[2019-05-07] MEDS: ENOXAPARIN INJ 40 MG/0.4 ML SYR SQ SCH (07:59)
[2019-05-07] MEDS: carvediloL 3.125 MG TAB PO SCH ×2 (08:00→20:32)
[2019-05-07] MEDS: INSULIN ASPART 100 UNITS/ML 3 ML PEN SC SCH ×4 (08:04→20:34)
[2019-05-07 08:24] LABS: BUN Creatinine Ratio 14.3 (10-20); Calcium 8.5 mg/dl (8.5-10.1); Est GFR (African American) 96.5; Est GFR (Non-African American) 83.2; Potassium 3.3 mmol/L (3.5-5.1)
[2019-05-07] MEDS ORDERED: INSULIN GLARGINE SOLOSTAR 100 UNITS/ML 3 ML PEN SC ONE ×2 (09:00→21:00)
--- NOTE | 2019-05-07 09:36 | Urology Progress Note ---
Date of Service May 07, 2019 Assessment & Plan (1) Ureterolithiasis: Clinically improved given co-morbid conditions, avoid surgery for the stone unless emergent (fevers, urosepis, extreme pain, etc) if she continues to progress, she may be a good candidate for outpt treatment cont diet for now will follow Subjective admitted yesterday with grossly elevated BG and an obstructing left UPJ calc subjectively reports she has drastically improved overnight minimal pain on her left flank no chills/rigors/fevers tolerating a diet Physical Exam Physical Exam: NAD AAOx3 no resp distress RRR abd soft, minimal tenderness on the left no rebound/guarding mild edema Results & Data Vital Signs (Past 12 Hours) Vital Signs Temp Pulse Pulse Resp BP BP Pulse Ox 05/07/19 07:59 37.3 C 85 18 156/83 H 95 05/07/19 04:55 36.9 C 84 19 172/89 H 94 05/06/19 23:46 90 05/06/19 23:06 37.5 C 94 H 18 124/72 93 PG Care Time/CCT Total # of Minutes Spent Total Time Spent with Patient: Total time spent is greater than 50% in coordination of care (as documented) at patient's floor/unit and/or counseling patient:
[2019-05-07] MEDS ORDERED: POTASSIUM CHLORIDE 10 MEQ TABCR PO STA (10:54)
--- NOTE | 2019-05-07 11:02 | Pharmacy Report ---
Pharmacy Glycemic Short Note 2 - Date of Service May 07, 2019 - Glycemic Short BSG Results (Last 24 hours): 05/06/19 05/06/19 05/06/19 11:46 13:03 14:23 Glucose POC Glucose 229 H 208 H 146 H 05/06/19 05/06/19 05/06/19 15:23 16:41 20:24 Glucose POC Glucose 136 H 148 H 237 H 05/07/19 05/07/19 07:17 07:29 Glucose 179 H POC Glucose 173 H ASSESSMENT: 05/07 * Patient transitioned off insulin drip yesterday evening - Received 45 units of basal and 12 units bolus in addition to drip yesterday * Will give full dose stress of 2 for this morning - Lantus 35 units x 1. Fasting slightly higher at 173 mg/dL * Per discussion with patient educator patient has Rx drug card and Basaglar is covered. Possibly discharge with basaglar once daily plus metformin * Lunchtime BSG trending up with lunch - will tighten CF/CR and overnight checks. 05/06 * 68 year old female admitted with DKA, started on insulin drip on admission. Concern also for sepsis/secondary to UTI started on zosyn. Urology following for possible ureteral stent placement tomorrow. NPO at midnight. * PMHx significant for type 2 diabetes - history of noncompliance. Had been prescribed metformin, however not taking. * BSGs trending down more today, did give one time dose of Lantus 35 units x 1 this morning to help with transition off of the drip. (~stress of 3 dosing adj BW) * Will add scale on for Lantus for this evening in case BSGs trending up * Will write for pending order for d/c of insulin drip with specific parameters PLAN FOR INPATIENT GLYCEMIC CONTROL: * Basal insulin * Lantus 35 units Qam * Bolus insulin - tighten * NovoLog per scale ACHS or Q6hrs while NPO * Goal Range: Low 120 mg/dL - High 160 mg/dL * Correction Factor: 15 mg/dL/unit * Nutritional / Prandial insulin per carb ratio of 1 unit per 5 grams CHO consumed
--- NOTE | 2019-05-07 19:13 | Hospitalist Progress Note ---
Date of Service May 07, 2019 Assessment & Plan (1) DKA (diabetic ketoacidoses): Newly diagnosed of diabetes Present on admission with elevated glucose in the 497 and anion gap 18 Hemoglobin A1c 11 on 05/06/19 Was starting on insulin drip and IVF anion gap close Insulin drip was transition to [facility] on board for glycemic management Diabetic education Continue monitor BS hx medication noncompliance Severe Sepsis Gram positive cocci in cluster Bacteremia Leukocytosis 20k with HR 110 on admission Lactic acid and procalcitonin elevated WBC trending down and lactate back to normal UA cx grew more than 3 organisms (Contamination) Blood cx positive for gram positive cocci Started on Dapto IV Zosyn discontinued Will repeat Blood cx Will get an ECHO ID consult Elevated Lactate Due to sepsis Blood cx positive for gram positive cocci Continue IVF and and IV dapto Lactate normalized Left Obstructing calculus stone CT abd/pelvis showed moderate left-sided obstructive uropathy secondary to an obstructing calculus of the left ureteropelvic junction, 1.9 cm. Urology on board plan for ureteral stent possible Thursday or outpatient if she remains stable Continue IVF If pt becomes toxic, will take to OR for emergent surgery Hypertensive Urgency Hypertension Will start on amlodipine 5mg Continue carvedilol BID Monitor BP DVT px on Lovenox CODE STATUS FULL CODE Disposition Patient's daughter requesting updates from providers. . Margarita Valdovinos, contact #[phone]. Subjective Pt was seen and examined Lying in bed with no distress Pt said that she feels fine Denies any fever, palpitation, dizziness and SOB Physical Exam Physical Exam: General- No acute distress Head- atraumatic Eyes- PERRL, EOMI, ENT- oropharynx clear Neck- supple, no JVD Lungs- clear to auscultation Heart- regular rhythm; no murmur Abdomen- normal bowel sounds, soft, nontender Extremities- no calf tenderness Neuro- alert, oriented x 3; PERRL, EOMI; no facial palsy; no dysarthria Skin- warm & dry Results & Data Vital Signs (Past 12 Hours) Vital Signs Temp Pulse Pulse Resp BP BP Pulse Ox 05/07/19 19:09 37.3 C 92 H 17 169/97 H 95 05/07/19 15:04 36.9 C 84 20 173/84 H 96 05/07/19 11:52 37.2 C 84 17 150/85 H 95 10/12/19 10:17 80 05/07/19 07:59 37.3 C 85 18 156/83 H 95 (1) DKA (diabetic ketoacidoses) Diabetes mellitus complication detail: without coma Diabetes mellitus type: other specified (including KAVON) Qualified Code(s): E13.10 - Other specified diabetes mellitus with ketoacidosis without coma
[2019-05-07] MEDS: AMLODIPINE BESYLATE 5 MG TAB PO SCH (21:08)
[2019-05-08] MEDS: INSULIN ASPART 100 UNITS/ML 3 ML PEN SC SCH ×6 (00:42→20:55)
[2019-05-08] MEDS: LACTATED RINGER'S 1,000 ML IV SCH (04:04)
[2019-05-08 05:40] LABS: Hematocrit (blood only) 36.7 % (37-47); Hemoglobin 12.7 g/dL (12.0-16.0); Mean Corpuscular Hemoglobin 31.2 pg (25-34); Mean Corpuscular Hgb Conc 34.6 g/dL (32-36); Mean Corpuscular Volume 90.2 fL (80-100); Mean Platelet Volume 9.5 fL (7.4-10.4); Platelet Count 202 K/uL (130-400); RDW Coefficient of Variation 12.8 % (11.5-14.5); RDW Standard Deviation 42.5 fL (36.4-46.3); Red Blood Count 4.07 M/uL (4.2-5.4); White Blood Count 7.62 K/uL (4.8-10.8)
[2019-05-08] MEDS: DAPTOmycin 750 MG in SYRINGE 0 ML IV SCH (06:00)
[2019-05-08 06:20] LABS: BUN Creatinine Ratio 11.3 (10-20); Calcium 8.4 mg/dl (8.5-10.1); Creatinine Clr Calc Pharmacy 102.3 ml/min; Est GFR (African American) 106.3; Est GFR (Non-African American) 91.7; Potassium 3.3 mmol/L (3.5-5.1)
--- NOTE | 2019-05-08 07:34 | Infectious Disease Consult ---
Date of Consultation May 08, 2019 Assessment & Plan (1) Gram positive sepsis: continue dapto, repeat blood cultures pending, will likely need 14 days abx, await final cultures, will follow. History of Present Illness Attending Physician: Daniela Hdz MD pt admitted wtih left flank pain. In ER CT revelaed 1.9 cm stone on left, urology following, for possible stent, overall feeling better. not sleeping we ll, some nausea this am, no vomiting, YOSEPH. no gu symptoms. Denies f/c. afebrile since admission. wbc 20 in ER, now 7. Admission blood cultures + gpc, on Dapto, tolerating well. repeat pending, UA in ER 10-30 wbc, culture > 3 organisms. creat 0.6 tolerating abx, no cp, sob, cough. Allergies Allergy/AdvReac Type Severity Reaction Status Date / Time acetaminophen [From Tylenol] Allergy Severe Hives, Verified 05/05/19 20:38 swollen eyes and fingers turn black aspirin Allergy Severe Hives, Verified 05/05/19 20:38 swollen eyes and fingers turn black Home Medications Home Medications Medication Instructions Recorded Confirmed Type No Known Home Medications 05/05/19 05/05/19 History Patient History Medical History Hypertension (Chronic) Uterine cancer (Resolved) Surgical History No significant past surgical history Family History Other No pertinent family history Social History Preferred Language: [place] Communication Ability: Effective Ring Packer Required: No Beliefs That Will Affect Care: None Current Living Situation: Alone Other Information That Helps Us Care for You: No Feels Safe at Home: Yes Safety Concerns: Feels Safe At This Time Smoking Status: Never smoker Hx Alcohol Use: Yes Alcohol type: wine Hx Substance Use: No Review of Systems Review of Systems: All systems reviewed & are unremarkable except as noted in HPI & below Physical Exam Constitutional: WD/WN, vitals as above Eyes: PERRL, conjunctivae normal, anicteric sclerae ENMT: external ear and nose normal, oropharynx normal Neck: normal visual inspection Respiratory: normal respiratory effort, lungs clear to auscultation Cardiovascular: RRR, no murmur, no edema Gastrointestinal (Abdomen): normal bowel sounds, soft, nontender, no hepatosplenomegaly Musculoskeletal: no cyanosis or clubbing, extremities motor strength 5/5 Skin: no rashes, warm and dry Psychiatric: A+Ox3, euthymic affect Results & Data Vital Signs (Past 12 Hours) Vital Signs Temp Pulse Resp BP BP Pulse Ox 05/08/19 07:09 37.2 C 83 17 155/89 H 95 05/08/19 03:54 37.0 C 84 17 164/82 H 95 05/07/19 23:08 37.3 C 84 17 162/92 H 95 Laboratory Results Microbiology 05/05/19 23:34 Blood Aerobic Blood Culture - Preliminary No growth in Aerobic bottle after 48 hours. 05/05/19 23:34 Blood Anaerobic Blood Culture - Preliminary Gram positive cocci clusters 05/05/19 23:29 Blood Aerobic Blood Culture - Preliminary No growth in Aerobic bottle after 48 hours. 05/05/19 23:29 Blood Anaerobic Blood Culture - Preliminary Gram positive cocci clusters 05/05/19 19:29 Urine,Clean Catch Urine Culture - Final More than three types of organisms present, all high counts mixed probable skin alvaro - No further identifications or sensitivities to follow. PG Care Time/CCT Total # of Minutes Spent Total Time Spent with Patient: Total time spent is greater than 50% in coordination of care (as documented) at patient's floor/unit and/or counseling patient:
[2019-05-08] MEDS: AMLODIPINE BESYLATE 5 MG TAB PO SCH (07:45)
[2019-05-08] MEDS: carvediloL 3.125 MG TAB PO SCH ×2 (07:46→20:53)
[2019-05-08] MEDS: ENOXAPARIN INJ 40 MG/0.4 ML SYR SQ SCH (07:46)
[2019-05-08] MEDS ORDERED: POTASSIUM CHLORIDE 20 MEQ TABCR PO STA (07:51)
[2019-05-08] MEDS ORDERED: INSULIN GLARGINE SOLOSTAR 100 UNITS/ML 3 ML PEN SC ONE ×2 (09:00→21:00)
--- NOTE | 2019-05-08 09:28 | Urology Progress Note ---
Date of Service May 08, 2019 Assessment & Plan (1) Ureterolithiasis: BG control improved stone symptoms decreased tentative plan for ESWL later this week as outpatient - will check a KUB today to confirm visibility of the stone Subjective did well overnight no severe pain BG control improved Physical Exam Physical Exam: NAD AAOx3 no resp distress abd soft, minimal tenderness on the left Results & Data Vital Signs (Past 12 Hours) Vital Signs Temp Pulse Resp BP BP Pulse Ox 05/08/19 07:09 37.2 C 83 17 155/89 H 95 05/08/19 03:54 37.0 C 84 17 164/82 H 95 05/07/19 23:08 37.3 C 84 17 162/92 H 95 PG Care Time/CCT Total # of Minutes Spent Total Time Spent with Patient: Total time spent is greater than 50% in coordination of care (as documented) at patient's floor/unit and/or counseling patient:
--- NOTE | 2019-05-08 13:41 | XRay Report ---
XR KUB/Abdomen 1 view CLINICAL HISTORY: stone COMPARISON STUDY: CT scan dated 05/05/2019 FINDINGS: There is no pathologic bowel dilatation. There is a large calcified gallstone. There is a 2 6 mm renal calculus in the region of the left renal pelvis. Multiple additional abdominal calcificati ons and pelvic calcifications likely represent phleboliths. IMPRESSION: 1. Cholelithiasis 2. 26 mm renal calculus in the region of the left renal pelvis Electronically signed by: Ashish Goldberg M.D. 05/08/2019 1:40 PM
--- NOTE | 2019-05-08 17:36 | Hospitalist Progress Note ---
Date of Service May 08, 2019 Assessment & Plan (1) DKA (diabetic ketoacidoses): Newly diagnosed of diabetes Present on admission with elevated glucose in the 497 and anion gap 18 Hemoglobin A1c 11 on 05/06/19 Was starting on insulin drip and IVF anion gap closed Insulin drip was transition to [facility] on board for glycemic management Diabetic education Continue monitor BS hx medication noncompliance Severe Sepsis Gram positive cocci in cluster Bacteremia Leukocytosis 20k with HR 110 on admission Lactic acid and procalcitonin elevated WBC trending down and lactate back to normal UA cx grew more than 3 organisms (Contamination) Blood cx positive for gram positive cocci Continue Dapto IV Zosyn discontinued ID on board recommended to continue antibiotic IV dapto ECHO done showed no evidence for vegetation repeat lood cx Will get an ECHO ID consult Elevated Lactate Due to sepsis Blood cx positive for gram positive cocci Continue IV dapto Lactate normalized Follow up repeat blood cx Cardiomyopathy- Systolic heart failure ECHO showed moderate reduced LV systolic fx with moderate global hypokinesis with EF 40-45% No sign of fluid overload Will consult cardiology Left Obstructing calculus stone CT abd/pelvis showed moderate left-sided obstructive uropathy secondary to an obstructing calculus of the left ureteropelvic junction, 1.9 cm. Urology on board plan for ureteral stent possible Thursday or outpatient if she remains stable Continue IVF If pt becomes toxic, will take to OR for emergent surgery Hypertensive Urgency Hypertension Starting on amlodipine 5mg Continue carvedilol BID Monitor BP DVT px on Lovenox CODE STATUS FULL CODE Disposition Patient's daughter requesting updates from providers. Ms. Margarita Valdovinos, contact #[phone]. Subjective Pt was seen and examined Lying in bed with no distress Pt said that she feels fine Denies any chest pain, palpitation, dizziness and SOB Physical Exam Physical Exam: General- No acute distress Head- atraumatic Eyes- PERRL, EOMI, ENT- oropharynx clear Neck- supple, no JVD Lungs- clear to auscultation Heart- regular rhythm; no murmur Abdomen- normal bowel sounds, soft, nontender Extremities- no calf tenderness Neuro- alert, oriented x 3; PERRL, EOMI; no facial palsy; no dysarthria Skin- warm & dry Results & Data Vital Signs (Past 12 Hours) Vital Signs Temp Pulse Pulse Resp BP Pulse Ox 05/08/19 15:54 36.8 C 89 18 179/93 H 93 05/08/19 11:30 36.9 C 77 18 155/88 H 95 05/08/19 10:26 75 05/08/19 07:09 37.2 C 83 17 155/89 H 95 (1) DKA (diabetic ketoacidoses) Diabetes mellitus complication detail: without coma Diabetes mellitus type: other specified (including KAVON) Qualified Code(s): E13.10 - Other specified diabetes mellitus with ketoacidosis without coma
[2019-05-09] MEDS ORDERED: INSULIN ASPART 100 UNITS/ML 3 ML PEN SC SCH
[2019-05-09] MEDS: DAPTOmycin 750 MG in SYRINGE 0 ML IV SCH (05:35)
[2019-05-09 06:58] LABS: Creatinine Clr Calc Pharmacy 92.4 ml/min; Est GFR (African American) 103.2
[2019-05-09] MEDS: carvediloL 3.125 MG TAB PO SCH ×2 (07:58→20:59)
[2019-05-09] MEDS: INSULIN ASPART 100 UNITS/ML 3 ML PEN SC SCH ×4 (07:59→20:58)
[2019-05-09] MEDS: AMLODIPINE BESYLATE 5 MG TAB PO SCH (07:59)
[2019-05-09] MEDS: ENOXAPARIN INJ 40 MG/0.4 ML SYR SQ SCH (08:00)
--- NOTE | 2019-05-09 08:39 | Urology Progress Note ---
Date of Service May 09, 2019 Assessment & Plan (1) Obstruction of left ureteropelvic junction (UPJ) due to stone: 68 YO female with large UPJ stone. Patient remains asymptomatic. Labs stable. She is agreeable to outpatient stone management with our service - will coordinate. Worrisome stone symptoms discussed, she voices understanding. Please contact us for emergent stent placement should patient decline or develop fever. Thank you for allowing us to participate in the inpatient care of Ms. Garcia. Please contact our service if we can assist further during hospitalization. Subjective 68 YO female with large left UPJ stone. Patient reports feeling very well this morning. Eating breakfast upon exam - no pain. No nausea/vomiting. No fevers/chills. Review of Systems Review of Systems: Per HPI. Physical Exam Physical Exam: NAD. Resp effort normal. No JVD. Abd nondistended. A&Ox3, appropriate affect. Results & Data Vital Signs (Past 12 Hours) Vital Signs Temp Pulse Pulse Resp BP Pulse Ox 05/09/19 07:00 36.7 C 79 16 166/93 H 96 05/09/19 03:44 37.4 C 84 18 162/86 H 94 05/08/19 23:45 81 05/08/19 23:42 37.4 C 83 18 158/90 H 95 PG Care Time/CCT Total # of Minutes Spent Total Time Spent with Patient: Total time spent is greater than 50% in coordination of care (as documented) at patient's floor/unit and/or counseling patient:
[2019-05-09] MEDS ORDERED: INSULIN GLARGINE SOLOSTAR 100 UNITS/ML 3 ML PEN SC ONE ×2 (09:00→21:00)
[2019-05-09 09:23] LABS: Potassium 3.6 mmol/L (3.5-5.1)
--- NOTE | 2019-05-09 10:25 | Infectious Disease Progress Nt ---
Date of Service May 09, 2019 Assessment & Plan (1) Gram positive sepsis: continue dapto, repeat blood cultures pending, will likely need 14 days abx, await final cultures, will follow. will need IV abx at home upon d/c. final abx will depend on culture results. repeat cultures negative to date. Subjective feeling much better today, no pain, no plan for urologic procedure. tolerating abx, blood cultures growing staph species x2, not yet identified/finalized. repeat cultures pending. echo negative. no cp, sob, cough, eating well. no abd pain, no n/v/d. Review of Systems Review of Systems: All systems reviewed & are unremarkable except as noted in HPI & below Physical Exam Constitutional: WD/WN, vitals as above Eyes: PERRL, conjunctivae normal, anicteric sclerae ENMT: external ear and nose normal, oropharynx normal Neck: normal visual inspection Respiratory: normal respiratory effort, lungs clear to auscultation Cardiovascular: RRR, no murmur, no edema Gastrointestinal (Abdomen): normal bowel sounds, soft, nontender, no hepatosplenomegaly Musculoskeletal: no cyanosis or clubbing, extremities motor strength 5/5 Skin: no rashes, warm and dry Psychiatric: A+Ox3, euthymic affect Results & Data Vital Signs (Past 12 Hours) Vital Signs Temp Pulse Pulse Resp BP Pulse Ox 05/09/19 07:00 36.7 C 79 16 166/93 H 96 05/09/19 03:44 37.4 C 84 18 162/86 H 94 05/08/19 23:45 81 05/08/19 23:42 37.4 C 83 18 158/90 H 95 Laboratory Results Microbiology 05/07/19 07:29 Blood Aerobic Blood Culture - Preliminary No growth in Aerobic bottle after 48 hours. 05/07/19 07:29 Blood Anaerobic Blood Culture - Preliminary No growth in Anaerobic bottle after 48 hours. 05/07/19 07:28 Blood Aerobic Blood Culture - Preliminary No growth in Aerobic bottle after 48 hours. 05/07/19 07:28 Blood Anaerobic Blood Culture - Preliminary No growth in Anaerobic bottle after 48 hours. 05/05/19 23:29 Blood Aerobic Blood Culture - Preliminary No growth in Aerobic bottle after 48 hours. 05/05/19 23:29 Blood Anaerobic Blood Culture - Preliminary Staphylococcus species Staphylococcus species#2 05/05/19 23:34 Blood Aerobic Blood Culture - Preliminary No growth in Aerobic bottle after 48 hours. 05/05/19 23:34 Blood Anaerobic Blood Culture - Preliminary Staphylococcus species Staphylococcus species#2 05/05/19 19:29 Urine,Clean Catch Urine Culture - Final More than three types of organisms present, all high counts mixed probable skin alvaro - No further identifications or sensitivities to follow. PG Care Time/CCT Total # of Minutes Spent Total Time Spent with Patient: Total time spent is greater than 50% in coordination of care (as documented) at patient's floor/unit and/or counseling patient:
[2019-05-09] MEDS ORDERED: LOSARTAN POTASSIUM 25 MG TAB PO SCH (10:30)
--- NOTE | 2019-05-09 13:38 | Cardiology Consultation ---
Date of Consultation May 09, 2019 Assessment & Plan (1) Dilated cardiomyopathy: Newly diagnosed dilated cardiomyopathy with ejection fraction 40-45% continue carvedilol as initiated on admission Add losartan 25 mg daily and titrate as tolerated / needed for blood pressure control. Will likely need outpatient nuclear stress test to evaluate underlying ischemia. She currently has no symptoms to suggest angina. (2) Hypertension: Remains uncontrolled despite initiation of carvedilol and amlodipine. Losartan added at 25 mg daily. Will titrate as tolerated / needed. Recheck BMP tomorrow to monitor renal function and potassium (3) Gram positive sepsis: continue antibiotics per hospitalist. No vegetations visible on echocardiogram Supervising Physician Co-Signing Physician Notes Patient seen and examined with Rakel Diaz PA-C. Agree with findings and assessment as above. The patient is a been a refugee from medical care for several years now. Her blood pressure was significantly elevated as well as her glucose level. Newly discovered cardiomyopathy EF globally reduced at 40 to 45%. She is asymptomatic from a clinical standpoint and denies experiencing chest pain, shortness of breath, palpitations, lightheadedness, dizziness or syncope. My initial suspicion is that her reduced LV systolic function is due to uncontrolled hypertension and possibly even catecholamine induced given her multiple medical issues. So at this time we will initiate antihypertensive regimen as above. Her blood pressure remained elevated this afternoon and will give her another dose of losartan 25 mg p.o. along with spironolactone 12.5 mg daily first dose now. She will ultimately require ischemic work-up however given her lack of symptoms I believe is prudent to complete that with an outpatient nuclear stress test. Ms. Mena's agrees with above plan, states that she understands and agrees. Will discharge once blood pressure is better controlled. General: Awake, alert and oriented x 3. No acute distress. HEENT: Normocephalic, atraumatic. Pupils equal, round and reactive to light and accommodation. Extraocular muscles are intact. Anicteric sclera. Moist mucous membranes. Neck: No JVD. No bruit. Cardiovascular: Regular. Positive S-4. Normal S-1 and S-2. No S-3. 3/6 holosystolic ejection murmur, left sternal border, mid-clavicular line with radiation to the axilla. No rubs. Pulmonary: Clear to auscultation bilaterally. No rales, rhonchi, or wheezing. Abdomen: Bowel sounds x 4, soft. No rebound, guarding or tenderness. No organomegaly. Extremities: No clubbing, cyanosis or edema. +2 pedal pulses bilaterally. Skin: Warm and dry. History of Present Illness Reason for Consultation: HTN; cardiomyopathy Requesting Physician: Dr. Hdz Attending Physician: Dr. Donn Waite History of Present Illness Patient is a 68-year-old female with history of hypertension, type 2 diabetes and uterine cancer. She moved to [place] last year in failed to reestablish with a primary care physician's and unfortunately she ran out of all of her medications including previously reported atenolol, lisinopril, pravastatin. She reports she has not been on medical therapies for approximately 1 year she presented to [facility] several days ago with left flank pain and diagnosed with sepsis secondary to UTI. She was also diagnosed with DKA and hypertensive urgency. She was started on carvedilol and amlodipine for hypertensive urgency. echocardiogram was obtained which demonstrated mildly reduced LV 40-45%. Cardiology consultation was Therefore requested to aid with medical management. Patient denies a cardiac history of congestive heart failure, coronary artery disease, history of coronary intervention or bypass surgery, history of arrhythmia, history of murmurs/valvular heart disease. She denies prior cardiac evaluation such as an echo or stress test prior to this admission. At time of consult patient resting in bed comfortably. She denies acute cardiac complaints. No recent chest pain or unusual shortness of breath. No palpitations or tachy palpitations. No orthopnea, PND, lower extremity edema. No recent dizziness, lightheadedness, syncope or near-syncope. She is tolerating medications as initiated earlier this hospitalization. Blood pressure remains uncontrolled. Allergies Allergy/AdvReac Type Severity Reaction Status Date / Time acetaminophen [From Tylenol] Allergy Severe Hives, Verified 05/05/19 20:38 swollen eyes and fingers turn black aspirin Allergy Severe Hives, Verified 05/05/19 20:38 swollen eyes and fingers turn black Home Medications Home Medications Medication Instructions Recorded Confirmed Type No Known Home Medications 05/05/19 05/05/19 History daptomycin 750 mg IV DAILY #12 ea 05/10/19 Rx Patient History Medical History Hypertension (Chronic) Uterine cancer (Resolved) Surgical History No significant past surgical history Family History Other No pertinent family history Social History Preferred Language: Citizen Of [place] Communication Ability: Effective Harness Inspector Required: No Beliefs That Will Affect Care: None Current Living Situation: Alone Feels Safe at Home: Yes Smoking Status: Never smoker Hx Alcohol Use: Yes Alcohol type: wine Hx Substance Use: No Review of Systems Review of Systems: All systems reviewed & are unremarkable except as noted in HPI & below Physical Exam Constitutional: WD/WN, vitals as above well developed; no acute distress Respiratory: normal respiratory effort, lungs clear to auscultation Cardiovascular: RRR, no murmur, no edema Gastrointestinal (Abdomen): normal bowel sounds, soft, nontender, no hepatosplenomegaly Neurologic: PERRL, EOMI, accommodation nl, no face palsy, no dysarthria Psychiatric: A+Ox3, euthymic affect Results & Data Vital Signs (Past 12 Hours) Vital Signs Temp Pulse Resp BP Pulse Ox 05/09/19 11:05 36.5 C 85 16 153/91 H 95 05/09/19 07:00 36.7 C 79 16 166/93 H 96 05/09/19 03:44 37.4 C 84 18 162/86 H 94 Laboratory Results 05/09/19 05/09/19 05/09/19 Range/Units 12:35 07:09 05:52 Potassium 3.6 (3.5-5.1) mmol/L Creatinine (0.6-1.2) mg/dl Est Cr Clr Drug Dosing ml/min Est GFR ( Amer) Est GFR (Non-Af Amer) POC Glucose 188 H 163 H (70-99) Specimen Hemolysis 05/09/19 05/08/19 05/08/19 Range/Units 05:52 23:59 20:28 Potassium (3.5-5.1) mmol/L Creatinine 0.70 (0.6-1.2) mg/dl Est Cr Clr Drug Dosing 92.4 ml/min Est GFR ( Amer) 103.2 Est GFR (Non-Af Amer) 89.0 POC Glucose 122 H 292 H (70-99) Specimen Hemolysis 05/08/19 Range/Units 16:20 Potassium (3.5-5.1) mmol/L Creatinine (0.6-1.2) mg/dl Est Cr Clr Drug Dosing ml/min Est GFR ( Amer) Est GFR (Non-Af Amer) POC Glucose 243 H (70-99) Specimen Hemolysis Diagnostic Findings 2D echocardiogram report reviewed dated May 08, 2019: Mildly dilated LV chamber size with mild concentric LVH. Moderately reduced LV systolic function with moderate global hypokinesis, ejection fraction 40-45%. Grade 1 diastolic dysfunction. No significant valvular pathology. No valvular lesions identified within the scope of this imaging modality. Mildly dilated ascending aorta. chest x-ray on admission: Cardiomegaly without acute process. EKG on admission reviewed: Sinus tachycardia Possible Left atrial enlargement Left ventricular hypertrophy Poor R wave progression, consider anterior OR vs. lead placement vs. LVH Nonspecific ST abnormality Abnormal ECG No previous ECGs available (1) Hypertension Hypertension type: unspecified Qualified Code(s): I10 - Essential (primary) hypertension
--- NOTE | 2019-05-09 14:15 | Pharmacy Report ---
Pharmacy Glycemic Short Note 2 - Date of Service May 09, 2019 - Glycemic Short BSG Results (Last 24 hours): 05/08/19 05/08/19 05/08/19 16:20 20:28 23:59 POC Glucose 243 H 292 H 122 H 05/09/19 05/09/19 07:09 12:35 POC Glucose 163 H 188 H ASSESSMENT: 05/09 * Patient received 103 units of insulin, of which 45 units were basal, BSGs improving * Fasting this morning 163 slightly above goal, will increase lantus this morni ng to 40 units with scale for evening * CF/CR tightened to 12/5 yesterday, will continue for now as BSGs improving/titrating lantus up 05/07 * Patient transitioned off insulin drip yesterday evening - Received 45 units of basal and 12 units bolus in addition to drip yesterday * Will give full dose stress of 2 for this morning - Lantus 35 units x 1. Fasting slightly higher at 173 mg/dL * Per discussion with clinical document improvement educator patient has Rx drug card and Basaglar is covered. Possibly discharge with basaglar once daily plus metformin * Lunchtime BSG trending up with lunch - will tighten CF/CR and overnight checks. 05/06 * 68 year old female admitted with DKA, started on insulin drip on admission. Concern also for sepsis/secondary to UTI started on zosyn. Urology following for possible ureteral stent placement tomorrow. NPO at midnight. * PMHx significant for type 2 diabetes - history of noncompliance. Had been prescribed metformin, however not taking. * BSGs trending down more today, did give one time dose of Lantus 35 units x 1 this morning to help with transition off of the drip. (~stress of 3 dosing adj BW) * Will add scale on for Lantus for this evening in case BSGs trending up * Will write for pending order for d/c of insulin drip with specific parameters PLAN FOR INPATIENT GLYCEMIC CONTROL: * Basal insulin * Lantus 40 units Qam, scale for PM BSG <120 5 units, BSG 120 or greater 10 units * Bolus insulin - * NovoLog per scale ACHS or Q6hrs while NPO * Goal Range: Low 120 mg/dL - High 160 mg/dL * Correction Factor: 12 mg/dL/unit * Nutritional / Prandial insulin per carb ratio of 1 unit per 5 grams CHO consumed
[2019-05-09] MEDS: SPIRONOLACTONE 25 MG TAB PO SCH (17:24)
[2019-05-09] MEDS: LOSARTAN POTASSIUM 25 MG TAB PO SCH (17:25)
--- NOTE | 2019-05-09 20:15 | Hospitalist Progress Note ---
Date of Service May 09, 2019 Assessment & Plan (1) DKA (diabetic ketoacidoses): Newly diagnosed of diabetes Present on admission with elevated glucose in the 497 and anion gap 18 Hemoglobin A1c 11 on 05/06/19 Was starting on insulin drip and IVF anion gap closed Insulin drip was transition to Lantus Pharmacy on board for glycemic management Diabetic education Continue monitor BS hx medication noncompliance Severe Sepsis Gram positive cocci in cluster Bacteremia Leukocytosis 20k with HR 110 on admission Lactic acid and procalcitonin elevated WBC trending down and lactate back to normal UA cx grew more than 3 organisms (Contamination) Blood cx positive for gram positive cocci IV Zosyn discontinued Continue Dapto IV ID on board recommended to continue antibiotic with IV dapto for 14 days course ECHO done showed no evidence for vegetation Repeat blood cx no growth so far ECHO showed no vegetation If blood cx remain negative, will get PICC line tomorrow Elevated Lactate Due to sepsis Blood cx positive for gram positive cocci Continue IV dapto Lactate normalized Follow up repeat blood cx Dilated Cardiomyopathy ECHO showed moderate reduced LV systolic fx with moderate global hypokinesis with EF 40-45% No sign of fluid overload Cardiology on board Will need outpatient nuclear stress test to evaluate underlying ischemia as per cardiology Continue Carvedilol 3.125 BID Losartan added Left Obstructing calculus stone CT abd/pelvis showed moderate left-sided obstructive uropathy secondary to an obstructing calculus of the left ureteropelvic junction, 1.9 cm. Urology on board plan for ureteral stent possible Thursday or outpatient if she remains stable Continue IVF If pt becomes toxic, will take to OR for emergent surgery Hypertensive Urgency Hypertension Continue amlodipine 5mg and carvedilol 3.125 BID starting on Losartan 25mg Check BMP in am Monitor BP DVT px on Lovenox CODE STATUS FULL CODE Disposition Patient's daughter requesting updates from providers. Ms. Margarita Valdovinos, contact #[phone]. Subjective Pt was seen and examined Lying in bed with no distress Pt said that she feels fine Denies any chest pain, palpitation, dizziness and SOB Physical Exam Physical Exam: General- No acute distress Head- atraumatic Eyes- PERRL, EOMI, ENT- oropharynx clear Neck- supple, no JVD Lungs- clear to auscultation Heart- regular rhythm; no murmur Abdomen- normal bowel sounds, soft, nontender Extremities- no calf tenderness Neuro- alert, oriented x 3; PERRL, EOMI; no facial palsy; no dysarthria Skin- warm & dry Results & Data Vital Signs (Past 12 Hours) Vital Signs Temp Pulse Resp BP Pulse Ox 05/09/19 19:39 37.2 C 80 18 154/85 H 97 05/09/19 15:47 36.7 C 77 18 164/92 H 96 05/09/19 11:05 36.5 C 85 16 153/91 H 95 (1) DKA (diabetic ketoacidoses) Diabetes mellitus complication detail: without coma Diabetes mellitus type: other specified (including KAVON) Qualified Code(s): E13.10 - Other specified diabetes mellitus with ketoacidosis without coma
[2019-05-10] MEDS: DAPTOmycin 750 MG in SYRINGE 0 ML IV SCH (05:38)
[2019-05-10 06:43] LABS: BUN Creatinine Ratio 18.4 (10-20); Calcium 8.4 mg/dl (8.5-10.1); Creatinine Clr Calc Pharmacy 109.6 ml/min; Est GFR (African American) 109.2; Est GFR (Non-African American) 94.2
[2019-05-10] MEDS: SPIRONOLACTONE 25 MG TAB PO SCH (08:13)
[2019-05-10] MEDS: LOSARTAN POTASSIUM 25 MG TAB PO SCH (08:13)
[2019-05-10] MEDS: ENOXAPARIN INJ 40 MG/0.4 ML SYR SQ SCH (08:14)
[2019-05-10] MEDS: AMLODIPINE BESYLATE 5 MG TAB PO SCH (08:15)
[2019-05-10] MEDS: carvediloL 3.125 MG TAB PO SCH (08:17)
[2019-05-10] MEDS: INSULIN ASPART 100 UNITS/ML 3 ML PEN SC SCH ×2 (08:17→11:59)
[2019-05-10] MEDS ORDERED: POTASSIUM CHLORIDE 20 MEQ TABCR PO STA ×2 (08:20→09:26)
[2019-05-10] MEDS ORDERED: SPIRONOLACTONE 25 MG TAB PO SCH (09:00)
[2019-05-10] MEDS ORDERED: INSULIN GLARGINE SOLOSTAR 100 UNITS/ML 3 ML PEN SC ONE ×2 (09:00→21:00)
--- NOTE | 2019-05-10 09:17 | Cardiology Progress Note ---
Date of Service May 10, 2019 Assessment & Plan (1) Dilated cardiomyopathy: Newly diagnosed dilated cardiomyopathy with ejection fraction 40-45%. Likely due to uncontrolled hypertension or catecholamine induced. Continue carvedilol, losartan, spironolactone. Increased spironolactone t his AM due to hypokalemia. Potassium one time dose also supplemented. Will likely need outpatient nuclear stress test to evaluate underlying ischemia. She currently has no symptoms to suggest angina. (2) Hypertension: Remains uncontrolled this AM despite initiation of carvedilol, amlodipine, losartan and spironolactone. Increase spironolactone this AM due to hypokalemia. Monitor BP. Recheck potassium later today (3) Gram positive sepsis: continue antibiotics per hospitalist. No vegetations visible on echocardiogram (4) Hypokalemia: Spironolactone increased to 25 mg daily this AM Potassium 20 meq - 1 time dose Recheck potassium levels at noon today. Case discussed with Dr. Waite. Will follow Supervising Physician Co-Signing Physician Notes Patient seen and examined with Rakel Diaz PA-C. Agree with findings and assessment as above. The patient is a been a refugee from medical care for several years now. Her blood pressure was significantly elevated as well as her glucose level. Newly discovered cardiomyopathy EF globally reduced at 40 to 45%. She is asymptomatic from a clinical standpoint and denies experiencing chest pain, shortness of breath, palpitations, lightheadedness, dizziness or syncope. My initial suspicion is that her reduced LV systolic function is due to uncontrolled hypertension and possibly even catecholamine induced given her multiple medical issues. Will uptitrate spironolactone, amlodipine and possibly losartan today. Ok to d/c to home once BP controlled from cardiac standpoint. She will ultimately require ischemic work-up however given her lack of symptoms I believe is prudent to complete that with an outpatient nuclear stress test. Ms. Mena's agrees with above plan, states that she understands and agrees. Will discharge once blood pressure is better controlled. General: Awake, alert and oriented x 3. No acute distress. HEENT: Normocephalic, atraumatic. Pupils equal, round and reactive to light and accommodation. Extraocular muscles are intact. Anicteric sclera. Moist mucous membranes. Neck: No JVD. No bruit. Cardiovascular: Regular. Positive S-4. Normal S-1 and S-2. No S-3. 3/6 holosystolic ejection murmur, left sternal border, mid-clavicular line with radiation to the axilla. No rubs. Pulmonary: Clear to auscultation bilaterally. No rales, rhonchi, or wheezing. Abdomen: Bowel sounds x 4, soft. No rebound, guarding or tenderness. No organomegaly. Extremities: No clubbing, cyanosis or edema. +2 pedal pulses bilaterally. Skin: Warm and dry. Subjective Patient resting in bed comfortably today. She denies acute cardiac complaints. No recent chest pain or unusual shortness of breath. Tolerating medication changes. No dizziness or lightheadedness. No palpitations. No orthopnea, PND, lower extremity edema. No fever cough or chills. Review of Systems Review of Systems: All systems reviewed & are unremarkable except as noted in HPI & below Physical Exam Constitutional: WD/WN, vitals as above well developed; no acute distress Respiratory: normal respiratory effort, lungs clear to auscultation Cardiovascular: RRR, no murmur, no edema Gastrointestinal (Abdomen): normal bowel sounds, soft, nontender, no hepatosplenomegaly Neurologic: PERRL, EOMI, accommodation nl, no face palsy, no dysarthria Psychiatric: A+Ox3, euthymic affect Results & Data Vital Signs (Past 12 Hours) Vital Signs Temp Pulse Pulse Resp BP Pulse Ox 05/10/19 08:48 77 05/10/19 07:22 36.7 C 74 16 155/85 H 95 05/10/19 03:12 37.6 C H 81 16 160/90 H 95 05/10/19 01:30 86 05/09/19 23:06 37.2 C 91 H 16 153/92 H 96 Laboratory Results 05/10/19 05/10/19 05/09/19 Range/Units 07:10 05:34 20:24 Sodium 139 (136-145) mmol/L Potassium 3.0 L D (3.5-5.1) mmol/L Chloride 106 (98-107) mmol/L Carbon Dioxide 25 (21-32) mmol/L Anion Gap 8.0 (3-11) BUN 11 (7-18) mg/dl Creatinine 0.59 L (0.6-1.2) mg/dl Est Cr Clr Drug Dosing 109.6 ml/min Est GFR ( Amer) 109.2 Est GFR (Non-Af Amer) 94.2 BUN/Creatinine Ratio 18.4 (10-20) Glucose 121 H (70-99) mg/dl POC Glucose 137 H 143 H (70-99) Calcium 8.4 L (8.5-10.1) mg/dl 05/09/19 05/09/19 Range/Units 16:17 12:35 Sodium (136-145) mmol/L Potassium (3.5-5.1) mmol/L Chloride (98-107) mmol/L Carbon Dioxide (21-32) mmol/L Anion Gap (3-11) BUN (7-18) mg/dl Creatinine (0.6-1.2) mg/dl Est Cr Clr Drug Dosing ml/min Est GFR ( Amer) Est GFR (Non-Af Amer) BUN/Creatinine Ratio (10-20) Glucose (70-99) mg/dl POC Glucose 100 H 188 H (70-99) Calcium (8.5-10.1) mg/dl Diagnostic Findings Telemetry reviewed: Normal sinus rhythm in the 80s and 90s. No arrhythmias. Rare PVC. Medications Administered Current Inpatient Medications [facility] Stop: 06/06/19 19:29 Last Admin: 05/10/19 08:15 Dose: 5 mg Documented by: Carvedilol (Coreg) 3.125 mg PO BID [facility] Stop: 06/06/19 06:59 Last Admin: 05/10/19 08:17 Dose: 3.125 mg Documented by: Enoxaparin Sodium (Lovenox) 40 mg SQ QAM [facility] Stop: 06/05/19 08:59 Last Admin: 05/10/19 08:14 Dose: 40 mg Documented by: Hydromorphone HCl (Dilaudid) 0.5 mg IV Q3H PRN PRN Reason: Pain Stop: 05/19/19 20:43 Promethazine HCl 12.5 mg/ (Sodium Chloride) 50.5 mls @ 202 mls/hr IV Q6H PRN PRN Reason: Nausea And Vomiting Stop: 06/04/19 20:43 Lorazepam (Ativan) 0.25 mg in 0.5 mls @ 0.5 mls/min IV Q4H PRN PRN Reason: Anxiety Stop: 06/04/19 22:26 Daptomycin 750 mg/ Syringe 15 mls @ 7.5 mls/min IV Q24H LYN; Protocol Stop: 05/21/19 05:59 Last Admin: 05/10/19 05:38 Dose: 7.5 mls/min Documented by: Insulin Aspart (Novolog Flexpen) 0 units SC ACHS LYN Stop: 06/05/19 07:29 Last Admin: 05/10/19 08:17 Dose: 11 units Documented by: Losartan Potassium (Cozaar) 25 mg PO [id number] [facility] Stop: 06/08/19 16:59 Last Admin: 05/10/19 08:13 Dose: 25 mg Documented by: Miscellaneous Information (Consult Glycemic Management Pharmacy) 1 ea N/A UD PRN PRN Reason: Consult Stop: 06/05/19 09:50 Miscellaneous Information (Consult) 1 ea N/A UD PRN PRN Reason: Consult Stop: 06/06/19 05:52 Nitroglycerin (Nitrostat) 0.4 mg SL UD PRN PRN Reason: Chest Pain Stop: 06/04/19 22:26 Oxycodone HCl (Roxicodone Immediate Rel) 5 mg PO Q4H PRN PRN Reason: Pain Stop: 05/19/19 20:43 Last Admin: 05/06/19 21:02 Dose: 5 mg Documented by: Potassium Chloride (Klor-Con M20) 40 meq PO NOW STA Stop: 05/10/19 09:27 Pravastatin Sodium (Pravachol) 40 mg PO DAILY@1700 [facility] Stop: 06/05/19 16:59 Last Admin: 05/06/19 16:49 Dose: 40 mg Documented by: Spironolactone (Aldactone) 25 mg PO DAILY [facility] Stop: 06/10/19 08:59 (1) Hypertension Hypertension type: unspecified Qualified Code(s): I10 - Essential (primary) hypertension
[2019-05-10] MEDS ORDERED: AMLODIPINE BESYLATE 5 MG TAB PO ONE (14:00)
[2019-05-10] MEDS ORDERED: POTASSIUM CHLORIDE 10 MEQ TABCR PO STA (14:58)
--- NOTE | 2019-05-10 15:01 | Hospitalist Progress Note ---
Date of Service May 10, 2019 Assessment & Plan (1) DKA (diabetic ketoacidoses): Newly diagnosed of diabetes Present on admission with elevated glucose in the 497 and anion gap 18 Hemoglobin A1c 11 on 05/06/19 Was starting on insulin drip and IVF Once anion gap closed, Insulin drip was transition to Lantus [facility] on board for glycemic management Diabetic education hx medication noncompliance Her insurance does not cover for lantus, will transition to Basaglar due to coverage Case discussed with pharmacy and the conversion is 1:1 ratio Will start on Basaglar 35 unit daily Will start on Metformin 500mg BID Continue monitor BS closely Severe Sepsis Gram positive cocci in cluster Bacteremia Leukocytosis 20k with HR 110 on admission Lactic acid and procalcitonin elevated WBC trending down and lactate back to normal UA cx grew more than 3 organisms (Contamination) Blood cx positive for gram positive cocci IV Zosyn discontinued Continue Dapto IV ID on board recommended to continue antibiotic with IV dapto for 14 days course ECHO done showed no evidence for vegetation Repeat blood cx no growth so far ECHO showed no vegetation Peripheral guided u/s placed for out IV infusion with Daptomycin Check CBC, CMP, CK and ESR weekly while on Dapto Elevated Lactate Due to sepsis Blood cx positive for gram positive cocci Continue IV dapto Lactate normalized Repeat blood cx no growth Resolved Dilated Cardiomyopathy ECHO showed moderate reduced LV systolic fx with moderate global hypokinesis with EF 40-45% No sign of fluid overload Cardiology on board Will need outpatient nuclear stress test to evaluate underlying ischemia as per cardiology Continue Carvedilol 3.125 BID, Losartan 25mg and Spironolactone 25mg Check BMP in 1 week Follow up with cardiology Left Obstructing calculus stone CT abd/pelvis showed moderate left-sided obstructive uropathy secondary to an obstructing calculus of the left ureteropelvic junction, 1.9 cm. Urology on board plan for ureteral stent outpatient since pt remains stable Plan for urology procedure this week outpatient Stable Hypertensive Urgency Hypertension Continue amlodipine 5mg, carvedilol 3.125 BID, Lorsatan and spironolactone Check BMP within 1 week Monitor BP DVT px on Lovenox CODE STATUS FULL CODE Disposition Discharge home today Follow up with your new primary care provider Dr. Kee on 05/17 @ 1PM Follow up with urology for your renal stone Follow up with cardiology in 2 to 4 weeks (Your physician will arrange for the referral ) Check BMP within 1 week to monitor electrolytes and kidney function Monitor your blood sugar and bring your blood sugar log at your next appointment with your physician Your physician will adjust your insulin if needs Monitor your blood pressure Follow a healthy diabetes diet and limited concentrated sweet intake Complete the course of the antibiotic with IV daptomycin Case management arranged for antibiotic infusion to be given at the [facility] Hold Pravastatin while you are getting IV daptomycin Check CBC, CMP, CPK, ESR weekly while getting IV daptomycin Subjective Pt was seen and examined Sitting at the edge of the bed with no distress Pt said that she feels fine Denies any chest pain, palpitation, dizziness and SOB Physical Exam Physical Exam: General- No acute distress Head- atraumatic Eyes- PERRL, EOMI, ENT- oropharynx clear Neck- supple, no JVD Lungs- clear to auscultation Heart- regular rhythm; no murmur Abdomen- normal bowel sounds, soft, nontender Extremities- no calf tenderness Neuro- alert, oriented x 3; PERRL, EOMI; no facial palsy; no dysarthria Skin- warm & dry Results & Data Vital Signs (Past 12 Hours) Vital Signs Temp Pulse Pulse Resp BP BP Pulse Ox 05/10/19 12:09 37.1 C 82 19 142/87 H 95 05/10/19 08:48 77 05/10/19 07:22 36.7 C 74 16 155/85 H 95 05/10/19 03:12 37.6 C H 81 16 160/90 H 95 (1) DKA (diabetic ketoacidoses) Diabetes mellitus complication detail: without coma Diabetes mellitus type: other specified (including KAVON) Qualified Code(s): E13.10 - Other specified diabetes mellitus with ketoacidosis without coma
[2019-05-11] MEDS ORDERED: SPIRONOLACTONE 25 MG TAB PO SCH (09:00)
--- NOTE | 2019-05-13 09:44 | Discharge Summary ---
Date of Service May 10, 2019 Admission HPI Per Admitting Provider History obtained from patient, family, and records. Medical history significant for hypertension, hx DM2 as per records (patient denies knowledge of diagnosis), hyperlipidemia as per records, uterine cancer status post surgery, osteoarthritis. Patient to [place] from [place] about 5 years ago to be close to her daughter. Never set up PCP services in [facility]. Doing [place], [place] residence, patient's [facility] PCP had patient on metformin Rx for DM; Atenolol and Lisinopril Rx for HTN as per records. Patient stopped taking above medications because " there was no one to prescribe them in [facility] for me." This morning patient woke up with achy left-sided flank pain going to the front with nausea and emesis. No chest pain. S OB from not being able to take a deep breath because of left flank pain. No cough symptoms. No dysuria, no hematuria, no fever. Some chills noted at home. At the ER, IV insulin started for DKA. Medical History as above Surgical History : Hysterectomy, dental surgery, D&C Family History : Lymphoma, thyroid cancer, diabetes, prostate cancer Personal/Social history : Non-smoker, no EtOH intake, retired [employer] employee Admission Exam Per Admitting Provider GENERAL: Comfortable, cheerful, obese, no respiratory distress SKIN: Normal color, warm HEENT: [place] palpebral conjunctivae, no ptosis, dry buccal mucosa NECK : Supple, short neck, no tenderness CHEST : CTA, no tenderness HEART : Tachycardic, no obvious murmurs ABDOMEN: Some distention, left flank tenderness EXTREMITIES : Chronic LE swelling, no LE tenderness, no other conspicuous deformities noted NEUROLOGIC : Coherent, no facial asymmetry, no other gross focality Principal Diagnosis DKA Newly diagnosed Diabetes Severe Sepsis Gram positive cocci in cluster Bacteremia Elevated Lactate Dilated Cardiomyopathy Left Obstructing calculus stone Hypokalemia Hypertension Urgency Discharge Exam General- No acute distress Head- atraumatic Eyes- PERRL, EOMI, ENT- oropharynx clear Neck- supple, no JVD Lungs- clear to auscultation Heart- regular rhythm; no murmur Abdomen- normal bowel sounds, soft, nontender Extremities- no calf tenderness Neuro- alert, oriented x 3; PERRL, EOMI; no facial palsy; no dysarthria Skin- warm & dry Discharge Data Allergies Allergy/AdvReac Type Severity Reaction Status Date / Time acetaminophen [From Tylenol] Allergy Severe Hives, Verified 05/13/19 09:14 swollen eyes and fingers turn black aspirin Allergy Severe Hives, Verified 05/13/19 09:14 swollen eyes and fingers turn black Consultations 05/05/19 20:05 ED Decision to Admit Stat 05/05/19 22:27 Consult Urology Routine 05/07/19 19:17 Consult Infectious Diseases Routine 05/08/19 18:25 Consult Cardiology Routine Ordered Studies 05/05/19 18:08 CT abd pelvis wo con Stat XR KUB/Abdomen 1 view CLINICAL HISTORY: stone COMPARISON STUDY: CT scan dated 05/05/2019 FINDINGS: There is no pathologic bowel dilatation. There is a large calcified gallstone. There is a 26 mm renal calculus in the region of the left renal pelvis. Multiple additional abdominal calcifications and pelvic calcifications likely represent phleboliths. IMPRESSION: 1. Cholelithiasis 2. 26 mm renal calculus in the region of the left renal pelvis Electronically signed by: Ashish Goldberg M.D. 05/08/2019 1:40 PM Dictated: 05/08/191337 Transcribed: 05/08/191337 XR chest 1V portable HISTORY: 68 years-old Female sepsis acute sepsis COMPARISON: CT abdomen and pelvis of same day TECHNIQUE: Portable AP view of the chest FINDINGS: Cardiac silhouette is enlarged. Minimal bibasilar atelectasis. No pneumothorax, pleural effusion, focal airspace consolidation or overt pulmonary edema. Degenerative changes of the shoulders and spine. IMPRESSION: Cardiomegaly without acute process. The above report was generated using voice recognition software. It may contain grammatical, syntax or spelling errors. Electronically signed by: Samuel Cleveland M.D. 05/05/2019 9:03 PM Dictated: 05/05/192101 Transcribed: 05/05/192101 ABDOMEN AND PELVIS CT WITHOUT CONTRAST CT DOSE: 1175.94 mGy.cm HISTORY: Acute left flank pain left flank pain TECHNIQUE: Multiaxial CT images of the abdomen and pelvis were performed without contrast. A dose lowering technique was utilized adhering to the principles of ALARA. COMPARISON STUDY: None. FINDINGS: Mild subsegmental bibasilar atelectasis. There is no pneumatosis or pneumoperitoneum. Imaged inferior cardiac chambers are unremarkable. Hepatic steatosis. No evidence of cirrhosis. The spleen and adrenal glands are unremarkable. Moderate generalized pancreatic atrophy. Large gallstone of the mid gallbladder is noted without CT evidence of acute cholecystitis or biliary ductal dilation. Mucosal fold of the gallbladder fundus with gallbladder distention. 2 mm nonobstructing calculus of the interpolar right kidney. There are several punctate nonobstructing calculi of the left kidney, most pronounced within the inferior pole. 1.9 x 1.1 x 1.7 cm calculus of the left ureteropelvic junction results in moderate hydroureteronephrosis with associated reactive perinephric and proximal periureteral edema. Unremarkable urinary bladder. Hysterectomy. Multiple phleboliths of the pelvis. No adnexal mass lesions. Calcified plaque of the abdominal aorta. Unremarkable IVC. No adenopathy. Mild nonspecific wall thickening of the distal esophagus. No bowel obstruction or bowel wall thickening. Appendix not definitively seen. No secondary signs of acute appendicitis. Soft tissues are unremarkable. Degenerative changes of the spine and pelvis. IMPRESSION: 1. Moderate left-sided obstructive uropathy secondary to an obstructing calculus of the left ureteropelvic junction, 1.9 cm. 2. Nonobstructing bilateral nephrolithiasis. 3. No bowel obstruction or bowel wall thickening. 4. Mild gallbladder distention with large gallstone. No definite CT evidence of acute cholecystitis. 5. Hepatic steatosis. Electronically signed by: Samuel Cleveland M.D. 05/05/2019 7:23 PM Dictated: 05/05/191917 Transcribed: 05/05/191917 Hospital Course (1) DKA (diabetic ketoacidoses): Newly diagnosed of diabetes Present on admission with elevated glucose in the 497 and anion gap 18 Hemoglobin A1c 11 on 05/06/19 Was starting on insulin drip and IVF Once anion gap closed, Insulin drip was transition to [facility] on board for glycemic management Diabetic education hx medication noncompliance Her insurance does not cover for lantus, will transition to Basaglar due to coverage Case discussed with pharmacy and the conversion is 1:1 ratio Will start on Basaglar 35 unit daily Will start on Metformin 500mg BID Continue monitor BS closely Severe Sepsis Gram positive cocci in cluster Bacteremia Leukocytosis 20k with HR 110 on admission Lactic acid and procalcitonin elevated WBC trending down and lactate back to normal UA cx grew more than 3 organisms (Contamination) Blood cx positive for gram positive cocci IV Zosyn discontinued Continue Dapto IV ID on board recommended to continue antibiotic with IV dapto for 14 days course ECHO done showed no evidence for vegetation Repeat blood cx no growth so far ECHO showed no vegetation Peripheral guided u/s placed for out IV infusion with Daptomycin Check CBC, CMP, CK and ESR weekly while on Dapto Elevated Lactate Due to sepsis Blood cx positive for gram positive cocci Continue IV dapto Lactate normalized Repeat blood cx no growth Resolved Dilated Cardiomyopathy ECHO showed moderate reduced LV systolic fx with moderate global hypokinesis with EF 40-45% No sign of fluid overload Cardiology on board Will need outpatient nuclear stress test to evaluate underlying ischemia as per cardiology Continue Carvedilol 3.125 BID, Losartan 25mg and Spironolactone 25mg Check BMP in 1 week Follow up with cardiology Left Obstructing calculus stone CT abd/pelvis showed moderate left-sided obstructive uropathy secondary to an obstructing calculus of the left ureteropelvic junction, 1.9 cm. Urology on board plan for ureteral stent outpatient since pt remains stable Plan for urology procedure this week outpatient Stable Hypertensive Urgency Hypertension Continue amlodipine 5mg, carvedilol 3.125 BID, Lorsatan and spironolactone Check BMP within 1 week Monitor BP DVT px on Lovenox CODE STATUS FULL CODE Disposition Discharge home today Follow up with your new primary care provider Dr. Kee on 05/17 @ 1PM Follow up with urology for your renal stone Follow up with cardiology in 2 to 4 weeks (Your physician will arrange for the referral ) Check BMP within 1 week to monitor electrolytes and kidney function Monitor your blood sugar and bring your blood sugar log at your next appointment with your physician Your physician will adjust your insulin if needs Monitor your blood pressure Follow a healthy diabetes diet and limited concentrated sweet intake Complete the course of the antibiotic with IV daptomycin Case management arranged for antibiotic infusion to be given at the [facility] Hold Pravastatin while you are getting IV daptomycin Check CBC, CMP, CPK, ESR weekly while getting IV daptomycin Total Time Total Time Spent Total Time Spent (In Minutes): 35 minutes Total Time Includes: Examination of the Patient, Discharge Planning, Medication Reconciliation, Communication With Other Providers and Other Discharge Plan Discharge Items Patient Disposition: Home - Self-Care Reason For Visit: HTN URGENCY, DKA Discharge Diagnosis: DKA Newly diagnosed Diabetes Severe Sepsis Gram positive cocci in cluster Bacteremia Elevated Lactate Dilated Cardiomyopathy Left Obstructing calculus stone Hypokalemia Hypertension Urgency Activity: Resume your previous activity Non-emergency contact: Primary Care Provider, [place] [facility] End Finder and Urologist Call non-emergency contact if: you have any medication questions Follow-up/Referrals: PCP,NO [Primary Care Provider] - Diet: Carb Consistent or DM2 Addtl Attending Provider Instructions: Follow up with your new primary care provider Dr. Kee on 05/17 @ 1PM Follow up with urology for your renal stone (office will arrange it) Follow up with cardiology in 2 to 4 weeks (Your physician will arrange for the referral ) Check BMP within 1 week to monitor electrolytes and kidney function Monitor your blood sugar and bring your blood sugar log at your next appointment with your physician Your physician will adjust your insulin if needs Monitor your blood pressure Follow a healthy diabetes diet and limited concentrated sweet intake Complete the course of the antibiotic with IV daptomycin Case management arranged for antibiotic infusion to be given at the [facility] Hold Pravastatin while you are getting IV daptomycin (Your physician will give you the prescription for the pravastatin to start once complete the course of daptomycin) Check CBC, CMP, CPK, ESR weekly while getting IV daptomycin Pending Studies at Discharge: No Stand-Alone Forms: My [facility] Conjunct Medications and DC Order Prescriptions: New daptomycin 500 mg recon soln 750 mg IV DAILY Qty: 12 RF: 0 amlodipine [Norvasc] 5 mg Tablet 5 mg PO QAM 30 Days Qty: 30 RF: 0 carvedilol 3.125 mg Tablet 3.125 mg PO BID 30 Days Qty: 60 RF: 0 losartan 25 mg Tablet 25 mg PO [id number] 30 Days Qty: 60 RF: 0 spironolactone 25 mg Tablet 25 mg PO DAILY Qty: 30 RF: 0 Basaglar KwikPen U-100 Insulin 100 unit/mL (3 mL) insulin pen 35 units SQ DAILY 30 Days Qty: 10.5 RF: 0 metformin 500 mg tablet extended release 24 hr 500 mg PO DAILY Qty: 30 RF: 0 Discharge Orders: Discharge Order (Routine); Ordered 05/10/19 Ordered By: Daniela Sheffield/Other Patient Handouts: Metformin Hydrochloride Oral tablet, Carvedilol Oral tablet, Daptomycin Solution for injection, Insulin Glargine Solution for injection, Losartan Potassium Oral tablet, Spironolactone Oral tablet, Diabetes Half-Way Complications, Diabetes Type 2 Coping, Diabetes Type 2 Oral Meds, Amlodipine Admission Data Admit Date/Time: 05/05/19 21:19 Attending Provider: Daniela Hdz Admit Provider: Jt Ceja Primary Care Provider: PCP,NO Other Providers: Jt Ceja ; Miguelangel Veloz ; Aida Nova ; Miguelangel Waite Other Interventions: Discharge Summary Assessment (RN) Last Done: 05/10/19 16:28 DC Date/Time DO NOT enter until pt leaves facility: 05/10/19 17:30
== END 2019-05-10 17:30 | disposition home or self-care (01) | DRG 871 ==
LOC: ED 17:40 → 2S 21:19